=== PATIENT | female | born 1960 | race Caucasian/White ===

== ENCOUNTER 2016-09-18 19:30 | Emergency (ER) | payer OTHER ==
[2016-09-18] MEDS ORDERED: Adenosine 6 MG/2 ML SDV IVPUSH ONE (19:46)
[2016-09-18] MEDS ORDERED: Adenosine 6 MG/2 ML SDV ONE (20:09)
[2016-09-18] MEDS ORDERED: Diltiazem 25 MG/5 ML SDV ONE (20:14)
--- NOTE | 2016-09-18 20:29 | EDM.PDOC ---
[id number]: SVT Time Seen by Provider: 09/18/16 19:46 Source of Information: Reports: Patient, Old records - History of Present Illness INITIAL COMMENTS - FREE TEXT/NARRATIVE: Patient has long history of SVT which occasionally requires ER visit and use of adenosine. Last visit was in the [facility] in Jun this year. Current episode started about 6 pm and her usual abortive measures tried at home failed to relieve the tachycardia. She then presented to ER. Symptom Onset Date: 09/18/16 Symptom Onset Time: 18:00 Timing/Duration: Reports: Hour(s):, Sudden onset Severity: moderate Location, General: Reports: generalized Quality: Reports: Other (sensation of SVT, heart pounding) Improves with: Reports: None Worsens with: Reports: None Associated Symptoms (General): Reports: no other symptoms. Denies: chest pain, cough, diaphoresis, headaches, nausea/vomiting, shortness of breath, syncope - Related Data Allergies/ADRs: Allergies Allergy/AdvReac Type Severity Reaction Status Date / Time aspirin Allergy Hives Verified 09/18/16 21:32 cefprozil [From Cefzil] Allergy Hives Verified 09/18/16 21:32 penicillin Allergy Hives Verified 09/18/16 21:32 Sulfa (Sulfonamide Allergy Hives Verified 09/18/16 21:32 Antibiotics) Home Meds: Home Meds Esomeprazole Magnesium [Nexium] 40 mg PO ASDIRECTED 12/21/14 [History] Metoprolol Tartrate [Metoprolol Tartrate] 100 mg PO BID 12/21/14 [History] Past Medical History Cardiovascular History: Reports: Arrhythmia, Hypertension, Other (see below) Other Cardiovascular History: SVT - Past Surgical History Cardiovascular Surgical History: Reports: None Social & Family History - Family History Cardiac: Reports: Bypass Other Cardiac Family History: father >60 years of age - Tobacco Use Smoking Status *Q: Never Smoker - Alcohol Use Number of Drinks Per Day: 2 ED ROS GENERAL - Review of Systems Review Of Systems: See Below Constitutional: Reports: other (palpitations and racing pulse). Denies: fever, chills, weakness, fatigue, diaphoresis HEENT: Reports: No symptoms Respiratory: Reports: No Symptoms. Denies: Shortness of Breath, Wheezing, Pleuritic Chest Pain, Cough Cardiovascular: Reports: Palpitations, Other (feels like heart is racing) Endocrine: Reports: no symptoms. Denies: polydypsia, polyuria GI/Abdominal: Reports: No symptoms. Denies: Abdominal pain, Constipation, Diarrhea, Difficulty swallowing, Distension : Reports: no symptoms Musculoskeletal: Reports: no symptoms Skin: Reports: no symptoms Neurological: Reports: No Symptoms Psychiatric: Reports: No symptoms Hematologic/Lymphatic: Reports: no symptoms Immunologic: Reports: no symptoms ED EXAM, GENERAL - Physical Exam Exam: See Below Exam Limited By: No limitations General Appearance: alert, WD/WN, no apparent distress Eye Exam: bilateral eye: EOMI, normal inspection, PERRL Ears: normal external exam, normal canal, hearing grossly normal Ear Exam: bilateral ear: auricle normal, canal normal, TM normal Nose: normal inspection Throat/Mouth: Normal inspection, No airway compromise Head: atraumatic, normocephalic Neck: normal inspection, supple, non-tender, full range of motion Respiratory/Chest: no respiratory distress, lungs clear, normal breath sounds. No: respiratory distress, crackles, rales, rhonchi, wheezing, accessory muscle use Cardiovascular: normal peripheral pulses, no edema, no murmur, other (SVT on monitor and initial EKG 150-160 bpm) Peripheral Pulses: 3+: dorsalis pedis (L), dorsalis pedis (R) GI/Abdominal: normal bowel sounds, soft, non tender, no organomegaly. No: no distention, rebound, tender Extremities: normal inspection, normal range of motion Neurological: alert, oriented, normal cognition, no motor/sensory deficits Psychiatric: normal affect, normal mood Skin Exam: Warm, Dry, Intact, Normal color EKG INTERPRETATION EKG Date: 09/18/16 Time: 19:35 Rhythm: other (SVTrate 164) P-wave: absent QRS: normal ST-T: depressed QT: normal EKG Interpretation Comments: SVT with ST segment depression changes likely due to rate Course - Vital Signs Last Recorded V/S: Last Vital Signs Temp Pulse 106 H 09/18/16 20:23 Resp 16 09/18/16 20:23 BP 182/108 H 09/18/16 20:23 Pulse Ox 99 09/18/16 20:23 - Orders/Labs/Meds Labs: Laboratory Tests 04/22/17 04/22/17 Range/Units 20:30 20:30 WBC 7.5 (4.0-10.0) x10^3/uL RBC 4.16 (4.00-5.50) x10^6/uL Hgb 13.2 (12.0-16.0) g/dL Hct 39.1 (33.0-47.0) % MCV 94.0 H (78.0-93.0) fL MCH 31.7 (26.0-32.0) pg MCHC 33.8 (32.0-36.0) g/dL RDW Coeff of Adelaida 12.8 (10.0-15.0) % Plt Count 195 (130-400) x10^3/uL Neut % (Auto) 61.8 (50.0-80.0) % Lymph % (Auto) 28.6 (25.0-50.0) % Ritchie % (Auto) 8.2 (2.0-11.0) % Eos % (Auto) 1.1 (0.0-4.0) % Baso % (Auto) 0.3 (0.2-1.2) % Sodium 141 (136-145) mmol/L Potassium 3.7 (3.5-5.1) mmol/L Chloride 108 H (98-107) mmol/L Carbon Dioxide 25 (21-32) mmol/L BUN 16 (7-18) mg/dL Creatinine 0.9 (0.55-1.02) mg/dL Est Cr Clr Drug Dosing TNP Estimated GFR (MDRD) > 60 Glucose 118 H (74-106) mg/dL Calcium 8.5 (8.5-10.1) mg/dL Corrected Calcium 8.98 (8.5-10.1) mg/dL Total Bilirubin 0.3 (0.2-1.0) mg/dL AST 23 (15-37) U/L ALT 36 (14-59) U/L Alkaline Phosphatase 95 (46-116) U/L Creatine Kinase 52 (26-192) U/L Creatine Kinase Index 1.3 (0.0-4.0) % CK-MB (CK-2) 0.7 (0.0-3.6) ng/mL Troponin I < 0.017 (<=0.056) ng/mL Total Protein 6.7 (6.4-8.2) g/dL Albumin 3.4 (3.4-5.0) g/dL Globulin 3.3 Albumin/Globulin Ratio 1.03 Meds: Medications Discontinued Medications Generic Name Dose Route Start Last Admin Trade Name Mohan PRN Reason Stop Dose Admin Adenosine 6 mg 09/18/16 19:46 09/18/16 20:00 Adenocard IVPUSH 09/18/16 19:47 6 mg NOW ONE Administration Adenosine Confirm 09/18/16 20:09 09/18/16 20:06 Adenocard Administered 09/18/16 20:10 12 mg Dose Administration 12 mg .ROUTE .STK-MED ONE Diltiazem HCl Confirm 09/18/16 20:14 09/18/16 20:48 Diltiazem Administered 09/18/16 20:15 20 mg Dose Administration 25 mg .ROUTE .STK-MED ONE - Re-Assessments/Exams Free Text/Narrative Re-Assessment/Exam: Patient given dose of adenosine 6 mg IV with no conversion to sinus. Second dose given of 12 mg and pulse dropped to 105 -110 for about fifteen minutes. Patient observed on byproducts maker continously and oxygen on before med given. Patient spontaneously went back into SVT rate of 160s again. denied chest pain or shortness of breath at that time. Given 20 mg of IV diltiazem slowly IV and within ten minutes or so was back into sinus rhythm of 90-100. Given one liter of IV normal saline over one hour to make sure not dehydrated. Labs done and Patient rested in room. Up to restroom with assistance three times. Labs reviewed and no acute abnormals noted. Cardiacs within normal limits. Will continue to monitor. second EKG done at 2012 showed sinus tach with nonspecific st seg changes diffusely rate 106 bpm. 09/18/16 21:48 09/18/16 21:56 Free Text/Narrative Re-Assessment/Exam: 09/18/16 22:33 Patient has maintained pulse in the 80s sinus rhythm for the last hour. Has been up ambulating in the garner without recurrence of symptoms. No chest pain. No SOB noted. Remains in NSR at this time. BP 179 systolic (down from 206). Departure - Departure Time of Disposition: 22:35 Disposition: Home, Self-Care 01 Condition: good Clinical Impression: SVT (supraventricular tachycardia) Instructions: Paroxysmal Supraventricular Tachycardia Referrals: PCP,None [Primary Care Provider] - Forms: ED Department Discharge Additional Instructions: Return to ER at once if symptoms redevelop or if you develop new symptoms such as chest pain, shortness of breath, nausea or sweating. Come back to hospital tomorrow for a recheck of BP. - Problem List Review Problem List Initiated/Reviewed/Updated: Yes - Assessment/Plan Plan: Discharge to home. Follow up with PCP this week.
[2016-09-18 21:11] LABS: CHLORIDE,CL 108 mmol/L (98-107); SODIUM,NA 141 mmol/L (136-145)
[2016-09-19 03:05] VITALS: BP 179/96
== END 2016-09-18 22:59 | disposition home or self-care (01) ==
LOC: VM.ED 19:30
DX: I47.1 Supraventricular tachycardia (principal); Z88.0 Allergy status to penicillin; Z88.1 Allergy status to other antibiotic agents; Z88.2 Allergy status to sulfonamides; Z88.6 Allergy status to analgesic agent; Z79.899 Other long term (current) drug therapy
CPT/HCPCS: 36415; 80053; 82550; 82553; 84484; 85025; 96374; 96375; 99285; J0153; 93005; J3490

== ENCOUNTER 2016-12-15 10:50 | Emergency (ER) | payer OTHER ==
[2016-12-15] MEDS ORDERED: Sodium Chloride 0.9% 10 ML Syringe FLUSH PRN (11:02)
[2016-12-15] MEDS ORDERED: Adenosine 6 MG/2 ML SDV IVPUSH ONE (11:03)
[2016-12-15] MEDS ORDERED: Sodium Chloride 0.9% 500 ML IV ONE (11:04)
[2016-12-15 11:56] LABS: CHLORIDE,CL 104 mmol/L (98-107); SODIUM,NA 141 mmol/L (136-145)
[2016-12-15 12:26] VITALS: BP 157/90
--- NOTE | 2016-12-16 07:42 | ER ---
Date of Service: 12/15/2016 SUBJECTIVE: Mary Kay presents to the emergency room with complaints of rapid heart rate. She has a history of paroxysmal supraventricular tachycardia with her last episode being in August. The patient states that she is not experiencing any chest pain or shortness of breath. She states that she began experiencing these symptoms at approximately 6:00 a.m. this morning and states that they are similar to what she has experienced in the past. PAST MEDICAL HISTORY: 1. SVT. 2. Hypertension. 3. Depression. 4. Anxiety. 5. GERD. MEDICATIONS: 1. Metoprolol tartrate 100 mg p.o. b.i.d. 2. Nexium 40 mg p.o. daily. 3. Alprazolam 0.25 mg q.4 hours. ALLERGIES: Aspirin, Cefzil, penicillin, and sulfa. REVIEW OF SYSTEMS: General: No fever or chills. HEENT: No sore throat, rhinorrhea, congestion. Respiratory: No shortness of breath. Cardiac: Denies any substernal chest pain. Again, she does have a sensation of tachycardia. GI: No nausea, vomiting, or diarrhea. No melena, hematochezia, or hematemesis. : Denies any dysuria. Musculoskeletal: No myalgias or arthralgias. DIAGNOSTIC DATA: A 12-lead EKG was obtained showing SVT at 150-160. LABORATORY DATA: WBCs 7.4, hemoglobin is 14.4, platelets are 205. Coags; PT is 10.2, INR is 0.9. Chemistry; sodium is 141, potassium is 4.0, chloride is 104, bicarb is 24, BUN is 14, creatinine is 1.0, creatinine clearance is 51.96. GFR is 57, glucose is 126, calcium is 9.4, corrected calcium is 9.48, total bilirubin is 0.4. AST is 21, ALT is 30, alkaline phosphatase is 105, CK is 44, troponin is 0.02, total protein is 7.9. EMERGENCY ROOM COURSE: IV access was established. She was given 6 mg of adenosine IV and her heart rate decreased into the high 90s and eventually the rate decreased into the 80s range. She had no further complaints of rapid heart rate, chest pain, or shortness of breath, and wished to be discharged. ASSESSMENT: Paroxysmal supraventricular tachycardia. PLAN: The patient will be discharged home. 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 They have discussed doing a radiofrequency ablation in the past, but she is resistant to doing this due to the complications that can follow her following such procedure. Return to the ER if she develops any recurrence of her symptoms. MWK: 12/15/2016 12:29:20 MODL: 12/15/2016 21:12:00 /[id number]
--- NOTE | 2016-12-22 13:55 | ER ---
Date of Service: 12/15/2016 ADDENDUM: PHYSICAL EXAMINATION: General: This is a 56-year-old female patient, who is in no acute distress. Vital Signs: Blood pressure is 146/102, heart rate 157 to 170, respiratory rate 16, O2 saturations 100%, temperature is 36.6. Skin: Warm, pink, and dry. Lungs: Clear to auscultation. Heart: Regular and tachycardic. Abdomen: Soft, nontender. There is no hepatosplenomegaly noted. There are no masses noted. Extremities: Without edema. Neurologic: The patient is alert, oriented, answers all questions appropriately. The patient's speech is fluent. Her gait is within normal limits. MWK: 12/22/2016 07:53:11 MODL: 12/22/2016 12:00:20 /[id number]
== END 2016-12-15 12:10 | disposition home or self-care (01) ==
LOC: VM.ED 10:50
DX: I47.1 Supraventricular tachycardia (principal); I10 Essential (primary) hypertension; F32.9 Major depressive disorder, single episode, unspecified; K21.9 Gastro-esophageal reflux disease without esophagitis; F41.9 Anxiety disorder, unspecified; Z79.899 Other long term (current) drug therapy; Z88.1 Allergy status to other antibiotic agents; Z88.2 Allergy status to sulfonamides; Z88.8 Allergy status to other drugs, medicaments and biological substances
CPT/HCPCS: 36415; 80053; 82550; 84484; 85025; 85610; 93005; 96361; 96374; 99285; J0153; J7040

== ENCOUNTER 2017-02-12 15:55 | Emergency (ER) | payer OTHER ==
--- NOTE | 2017-02-12 16:36 | EDM.PDOC ---
ED HPI GENERAL MEDICAL PROBLEM - General Chief Complaint: Cardiovascular Problem Stated Complaint: SVT Time Seen by Provider: 02/12/17 16:09 Source of Information: Reports: Patient, RN, RN Notes Reviewed History Limitations: Reports: No Limitations - History of Present Illness INITIAL COMMENTS - FREE TEXT/NARRATIVE: Patient presents the emergency room at [facility] with concerns of uncontrolled SVT. The patient states her symptoms began about 2 hours ago. The patient states that she did take a Xanax in addition to her metoprolol. She states that her symptoms of SVT did not resolve so she brought herself to the emergency room. The patient denies any chest pain. The patient denies any shortness of breath. No focal neurological deficits. No nausea vomiting or diarrhea. No dizziness. No headache. The patient states that she takes metoprolol on a daily basis to help control her SVT. The patient states it has been a very long time since her last episode. The patient does have regular clinic appointments and is being watched very closely. Onset: Today, Sudden Onset Date: 02/12/17 - Related Data Allergies Allergy/AdvReac Type Severity Reaction Status Date / Time aspirin Allergy Hives Verified 02/12/17 16:13 cefprozil [From Cefzil] Allergy Hives Verified 02/12/17 16:13 penicillin Allergy Hives Verified 02/12/17 16:13 Sulfa (Sulfonamide Allergy Hives Verified 02/12/17 16:13 Antibiotics) Home Meds: Home Meds Esomeprazole Magnesium [Nexium] 40 mg PO ASDIRECTED 12/21/14 [History] Metoprolol Tartrate [Metoprolol Tartrate] 100 mg PO BID 12/21/14 [History] ALPRAZolam [Alprazolam] 0.25 mg PO Q4H PRN 12/15/16 [History] Past Medical History Cardiovascular History: Reports: Arrhythmia, Hypertension, Other (See Below) Other Cardiovascular History: SVT - Past Surgical History Cardiovascular Surgical History: Reports: None Social & Family History - Family History Cardiac: Reports: Bypass Other Cardiac Family History: father >60 years of age - Tobacco Use Smoking Status *Q: Never Smoker - Alcohol Use Days Per Week of Alcohol Use: 4 Number of Drinks Per Day: 3 Total Drinks Per Week: 12 - Recreational Drug Use Recreational Drug Use: No ED ROS GENERAL - Review of Systems Review Of Systems: See Below Constitutional: Denies: Fever, Chills, Weakness Respiratory: Reports: Shortness of Breath, Cough Cardiovascular: Reports: Palpitations, Other (Tachycardia). Denies: Chest Pain GI/Abdominal: Denies: Abdominal Pain, Nausea, Vomiting Skin: Reports: No Symptoms Neurological: Reports: No Symptoms. Denies: Dizziness, Headache ED EXAM, GENERAL - Physical Exam Exam: See Below Exam Limited By: No Limitations General Appearance: Alert, No Apparent Distress Respiratory/Chest: No Respiratory Distress, Lungs Clear, Normal Breath Sounds Cardiovascular: Normal Peripheral Pulses, Regular Rate, Rhythm, No JVD, No Murmur Peripheral Pulses: 2+: Radial (L), Radial (R) GI/Abdominal: Normal Bowel Sounds, Soft, Non-Tender Neurological: Alert, Oriented Skin Exam: Warm, Dry, Intact, Normal Color, No Rash Departure - Departure Time of Disposition: 16:34 Disposition: Home, Self-Care 01 Condition: Good Clinical Impression: SVT (supraventricular tachycardia) Instructions: Paroxysmal Supraventricular Tachycardia Referrals: Jyoti Boston, [Primary Care Provider] - Additional Instructions: 1. Stay well hydrated and rest 2. Continue with current medications 3. Return to ER as symptoms warrant - Problem List Review Problem List Initiated/Reviewed/Updated: Yes - Assessment/Plan Assessment:: Uncontrolled SVT Plan: As the patient was being assessed in the emergency department, her heart rate did convert to a normal sinus rhythm with a rate in the 90s. The patient did self convert. No intervention required. The patient declined the EKG. The patient will rest in the ER for a while and if she feels okay she'll be discharged home.
[2017-02-12 17:21] VITALS: BP 159/105
== END 2017-02-12 16:45 | disposition home or self-care (01) ==
LOC: VM.ED 15:55
DX: I47.1 Supraventricular tachycardia (principal); I10 Essential (primary) hypertension; Z88.6 Allergy status to analgesic agent; Z88.2 Allergy status to sulfonamides; Z88.0 Allergy status to penicillin; Z88.8 Allergy status to other drugs, medicaments and biological substances
CPT/HCPCS: 99284

== ENCOUNTER 2017-12-04 19:40 | Emergency (ER) | payer OTHER ==
--- NOTE | 2017-12-04 19:56 | EDM.PDOC ---
ED HPI GENERAL MEDICAL PROBLEM - General Chief Complaint: Cardiovascular Problem Stated Complaint: SVT Time Seen by Provider: 12/04/17 19:56 Source of Information: Reports: Patient - History of Present Illness INITIAL COMMENTS - FREE TEXT/NARRATIVE: The patient has had SVT multiple times before. She said that she felt earlier today and she try to take an extra Lopressor but to no avail. She does have a racing heart rate. She did not have any triggers. She does not know of any triggers. 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 She does not feel lightheaded or dizzy per se. We did do an EKG to confirm her SVT. We then gave her one IV worth of adenosine. We did observe her for a short time afterwards and then she was comfortable with going home. In the past she has been able to convert with one IV otherwise she did have to have a second and a Cardizem drip but that is quite rare. She has not had a SVT episode since April. No fever no chills. Onset: Today Severity: Moderate Improves with: Reports: None Worsens with: Reports: None - Related Data Allergies Allergy/AdvReac Type Severity Reaction Status Date / Time aspirin Allergy Hives Verified 12/07/17 10:47 cefprozil [From Cefzil] Allergy Hives Verified 12/07/17 10:47 penicillin Allergy Hives Verified 12/07/17 10:47 Sulfa (Sulfonamide Allergy Hives Verified 12/07/17 10:47 Antibiotics) Home Meds: Home Meds Metoprolol Tartrate 100 mg PO BID 12/21/14 [History] ALPRAZolam [Alprazolam] 0.25 mg PO Q4H PRN 12/15/16 [History] Past Medical History Cardiovascular History: Reports: Arrhythmia, Hypertension, Other (See Below) Other Cardiovascular History: SVT 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 ED EXAM, GENERAL - Physical Exam Exam: See Below Exam Limited By: No Limitations General Appearance: Alert, Mild Distress. No: Anxious Respiratory/Chest: No Respiratory Distress, Lungs Clear Cardiovascular: Other (Tachycardia and proven to be SVT on EKG.) ED CARDIOLOGY PROCEDURES - Cardioversion Indication: SVT Preparation: IV Access (Adenosine) EKG INTERPRETATION Rhythm: Other (SVT) Course - Vital Signs Last Recorded V/S: Last Vital Signs Temp 36.9 C 12/04/17 19:54 Pulse 91 12/04/17 20:45 Resp 20 12/04/17 20:45 BP 155/88 H 12/04/17 20:45 Pulse Ox 99 12/04/17 20:45 - Orders/Labs/Meds Meds: Medications Discontinued Medications Generic Name Dose Route Start Last Admin Trade Name Freq PRN Reason Stop Dose Admin Adenosine 6 mg 12/04/17 20:02 12/04/17 20:06 Adenocard IVPUSH 12/04/17 20:03 6 mg NOW ONE Administration Sodium Chloride 1,000 mls @ 999 mls/hr 12/04/17 20:10 12/04/17 20:11 Normal Saline IV 12/04/17 21:10 999 mls/hr ONETIME ONE Administration Departure - Departure Time of Disposition: 20:37 Disposition: Home, Self-Care 01 Condition: Good Clinical Impression: SVT (supraventricular tachycardia) Referrals: Jyoti Boston DO [Primary Care Provider] - Forms: ED Department Discharge Additional Instructions: Return here if needed. See Dr. Boston if needed.
[2017-12-04] MEDS ORDERED: Adenosine 6 MG/2 ML SDV IVPUSH ONE (20:02)
[2017-12-04] MEDS ORDERED: Sodium Chloride 0.9% 1,000 ML IV ONE (20:10)
[2017-12-04 20:45] VITALS: BP 155/88
== END 2017-12-04 20:52 | disposition home or self-care (01) ==
LOC: VM.ED 19:40
DX: I47.1 Supraventricular tachycardia (principal); I10 Essential (primary) hypertension; Z88.1 Allergy status to other antibiotic agents; Z88.2 Allergy status to sulfonamides; Z88.8 Allergy status to other drugs, medicaments and biological substances
CPT/HCPCS: 93005; 96361; 96374; 99285; J0153; J7030

== ENCOUNTER 2017-12-07 10:03 | Emergency (ER) | payer OTHER ==
[2017-12-07] MEDS ORDERED: Sodium Chloride 0.9% 10 ML Syringe FLUSH PRN (10:14)
[2017-12-07] MEDS: Sodium Chloride 0.9% 1,000 ML IV ONE (10:30)
[2017-12-07] MEDS: Adenosine 6 MG/2 ML SDV IVPUSH ONE (10:35)
[2017-12-07 11:00] LABS: CHLORIDE,CL 108 mmol/L (98-107); SODIUM,NA 141 mmol/L (136-145)
[2017-12-07 12:33] VITALS: BP 130/92
--- NOTE | 2017-12-07 16:36 | EDM.PDOC ---
ED HPI GENERAL MEDICAL PROBLEM - General Chief Complaint: Cardiovascular Problem Stated Complaint: ER Time Seen by Provider: 12/07/17 10:10 Source of Information: Reports: Patient History Limitations: Reports: No Limitations - History of Present Illness INITIAL COMMENTS - FREE TEXT/NARRATIVE: Pt. states that she noticed her heart was racing at approx. 0500 this AM. She has a longstanding history of SVT and frequently comes to ER for this. She was seen for the same 2 days ago and was seen by Bela Herrera, and received IV adenosine. She converted on the first dose. In evaluating her chart, she has not been seen by EP or cardiology since 2014. She states that she is not experiencing any chest pain or shortness of breath. Onset: Today Onset Time: 05:00 Location: Reports: Generalized - Related Data Allergies Allergy/AdvReac Type Severity Reaction Status Date / Time aspirin Allergy Hives Verified 12/07/17 10:47 cefprozil [From Cefzil] Allergy Hives Verified 12/07/17 10:47 penicillin Allergy Hives Verified 12/07/17 10:47 Sulfa (Sulfonamide Allergy Hives Verified 12/07/17 10:47 Antibiotics) Home Meds: Home Meds Metoprolol Tartrate 100 mg PO BID 12/21/14 [History] ALPRAZolam [Alprazolam] 0.25 mg PO Q4H PRN 12/15/16 [History] Past Medical History Cardiovascular History: Reports: Arrhythmia, Hypertension, Other (See Below) Other Cardiovascular History: 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 Denies: Chest Pain, Dyspnea on Exertion , Edema, Lightheadedness Endocrine: Reports: No Symptoms GI/Abdominal: Reports: No Symptoms : Reports: No Symptoms Musculoskeletal: Reports: No Symptoms Skin: Reports: No Symptoms Neurological: Reports: No Symptoms Psychiatric: Reports: No Symptoms Hematologic/Lymphatic: Reports: No Symptoms Immunologic: Reports: No Symptoms ED EXAM, GENERAL - Physical Exam Exam: See Below Exam Limited By: No Limitations General Appearance: Alert, WD/WN, No Apparent Distress Nose: Normal Inspection, Normal Mucosa, No Blood Throat/Mouth: Normal Inspection, Normal Lips, Normal Teeth, Normal Gums, Normal Oropharynx, Normal Voice, No Airway Compromise Head: Atraumatic, Normocephalic Neck: Normal Inspection, Supple, Non-Tender, Full Range of Motion Respiratory/Chest: No Respiratory Distress, Lungs Clear, Normal Breath Sounds, No Accessory Muscle Use, Chest Non-Tender Cardiovascular: Tachycardia Peripheral Pulses: 4+: Radial (L), Radial (R) GI/Abdominal: Normal Bowel Sounds, Soft, Non-Tender, No Organomegaly, No Distention, No Abnormal Bruit, No Mass (Female) Exam: Deferred Rectal (Female) Exam: Deferred Back Exam: Normal Inspection, Full Range of Motion, NT Extremities: Normal Inspection, Normal Range of Motion, Non-Tender, Normal Capillary Refill, No Pedal Edema Neurological: Alert, Oriented, CN II-XII Intact, Normal Cognition, Normal Gait, Normal Reflexes, No Motor/Sensory Deficits Skin Exam: Warm, Dry, Intact, Normal Color, No Rash Course - Vital Signs Last Recorded V/S: Last Vital Signs Temp 36.7 C 12/07/17 10:10 Pulse 85 12/07/17 11:00 Resp 14 12/07/17 11:00 BP 130/92 H 12/07/17 11:00 Pulse Ox 98 12/07/17 11:00 - Orders/Labs/Meds Orders: Active Orders 24 hr Category Date Time Status EKG Documentation Completion [RC] STAT Care 12/07/17 10:14 Active Peripheral IV Insertion Adult [OM.PC] Routine Oth 12/07/17 10:14 Ordered Labs: Laboratory Tests 12/07/17 12/07/17 12/07/17 Range/Units 10:30 10:30 10:30 WBC 7.5 (4.0-10.0) x10^3/uL RBC 4.39 (4.00-5.50) x10^6/uL Hgb 14.0 (12.0-16.0) g/dL Hct 42.0 (33.0-47.0) % MCV 95.7 H (78.0-93.0) fL MCH 31.9 (26.0-32.0) pg MCHC 33.3 (32.0-36.0) g/dL RDW Coeff of Adelaida 13.3 (10.0-15.0) % Plt Count 236 (130-400) x10^3/uL Neut % (Auto) 67.4 (50.0-80.0) % Lymph % (Auto) 25.3 (25.0-50.0) % [place] % (Auto) 6.4 (2.0-11.0) % Eos % (Auto) 0.8 (0.0-4.0) % Baso % (Auto) 0.1 L (0.2-1.2) % PT 9.7 (9.6-11.4) SEC INR 0.9 L (2.0-3.5) Sodium 141 (136-145) mmol/L Potassium 4.0 (3.5-5.1) mmol/L Chloride 108 H (98-107) mmol/L Carbon Dioxide 20 L (21-32) mmol/L Anion Gap 17.0 (10-20) mmol/L BUN 16 (7-18) mg/dL Creatinine 1.0 (0.55-1.02) mg/dL Est Cr Clr Drug Dosing TNP Estimated GFR (MDRD) 57 Glucose 169 H (74-106) mg/dL Calcium 9.3 (8.5-10.1) mg/dL Corrected Calcium 9.54 (8.5-10.1) mg/dL Phosphorus 3.2 (2.6-4.7) mg/dL Magnesium 1.8 (1.8-2.4) mg/dL Total Bilirubin 0.5 (0.2-1.0) mg/dL AST 18 (15-37) U/L ALT 28 (14-59) U/L Alkaline Phosphatase 91 (46-116) U/L Troponin I < 0.017 (<=0.056) ng/mL C-Reactive Protein < 0.3 (<=0.9) mg/dL Total Protein 7.1 (6.4-8.2) g/dL Albumin 3.7 (3.4-5.0) g/dL Globulin 3.4 Albumin/Globulin Ratio 1.09 Meds: Medications Discontinued Medications Generic Name Dose Route Start Last Admin Trade Name Freq PRN Reason Stop Dose Admin Adenosine 6 mg 12/07/17 10:13 12/07/17 10:35 Adenocard IVPUSH 12/07/17 10:14 6 mg NOW ONE Administration Sodium Chloride 1,000 mls @ 1,000 mls/hr 12/07/17 10:22 12/07/17 10:30 Normal Saline IV 12/07/17 11:21 1,000 mls/hr .BOLUS ONE Administration Sodium Chloride 10 ml 12/07/17 10:14 Saline Flush FLUSH ASDIRECTED PRN Keep Vein Open Departure - Departure Time of Disposition: 11:30 Disposition: Home, Self-Care 01 Clinical Impression: Paroxysmal supraventricular tachycardia Instructions: Supraventricular Tachycardia, Adult Referrals: Jyoti Boston, [Primary Care Provider] - Forms: ED Department Discharge Additional Instructions: The clinic will call you to set up an appointment with the dispatch clerk. Return to ER if you have recurrence of fast heart rate. - My Orders Last 24 Hours: My Active Orders 12/07/17 10:14 EKG Documentation Completion [RC] STAT Peripheral IV Insertion Adult [OM.PC] Routine - Assessment/Plan Last 24 Hours: My Active Orders 12/07/17 10:14 EKG Documentation Completion [RC] STAT Peripheral IV Insertion Adult [OM.PC] Routine
== END 2017-12-07 12:00 | disposition home or self-care (01) ==
LOC: VM.ED 10:03
DX: I47.1 Supraventricular tachycardia (principal); I10 Essential (primary) hypertension; Z88.6 Allergy status to analgesic agent; Z88.1 Allergy status to other antibiotic agents; Z88.0 Allergy status to penicillin; Z88.2 Allergy status to sulfonamides
CPT/HCPCS: 36415; 80053; 83735; 84100; 84484; 85025; 85610; 86140; 93005; 96361; 96374; 99285; J0153; J7030

== ENCOUNTER 2018-09-26 08:23 | Emergency (ER) | payer OTHER ==
[2018-09-26 08:32] VITALS: BP 173/118
[2018-09-26] MEDS ORDERED: Sodium Chloride 0.9% 10 ML Syringe FLUSH PRN (08:34)
[2018-09-26] MEDS ORDERED: Sodium Chloride 0.9% 1,000 ML IV SCH (08:45)
[2018-09-26] MEDS ORDERED: Diltiazem 50 MG/10 ML SDV IVPUSH ONE (08:45)
[2018-09-26 09:31] LABS: ANION GAP 19.9 mmol/L (10-20); CHLORIDE,CL 108 mmol/L (98-107); SODIUM,NA 145 mmol/L (136-145)
--- NOTE | 2018-09-26 09:42 | EDM.PDOC ---
ED HPI GENERAL MEDICAL PROBLEM - General Chief Complaint: Cardiovascular Problem Stated Complaint: FAST HEART RATE Time Seen by Provider: 09/26/18 08:34 Source of Information: Reports: Patient History Limitations: Reports: No Limitations - History of Present Illness INITIAL COMMENTS - FREE TEXT/NARRATIVE: Patient comes in with complaints of palpitations that started around 5 am today. Patient reports history of SVT and states that this is what this feels like. NO reports of chest pain or pressure. States she has this happen frequently and does come in to have medications given which usually corrects that arrhythmia. No headache, blurry or double vision. Denies SOB, no abdominal pain, nausea, vomiting, or diarrhea. Denies any further symptoms. States she did try vaso-vagal maneuvers prior to coming in which were ineffective. Onset: Today, Sudden Duration: Intermittent Location: Reports: Chest Severity: Moderate Associated Symptoms: Reports: No Other Symptoms - Related Data Allergies Allergy/AdvReac Type Severity Reaction Status Date / Time aspirin Allergy Hives Verified 09/26/18 08:34 cefprozil [From Cefzil] Allergy Hives Verified 09/26/18 08:34 penicillin Allergy Hives Verified 09/26/18 08:34 Sulfa (Sulfonamide Allergy Hives Verified 09/26/18 08:34 Antibiotics) Home Meds: Home Meds Metoprolol Tartrate 100 mg PO BID 12/21/14 [History] ALPRAZolam [Alprazolam] 0.25 mg PO Q4H PRN 12/15/16 [History] Past Medical History Cardiovascular History: Reports: Arrhythmia, Hypertension, Other (See Below) 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: - Past Surgical History Cardiovascular Surgical History: Reports: None Social & Family History - Family History Cardiac: Reports: Bypass Other Cardiac Family History: father >60 years of age - Tobacco Use Smoking Status *Q: Never Smoker - Alcohol Use Days Per Week of Alcohol Use: 7 Number of Drinks Per Day: 7 Total Drinks Per Week: 49 - Recreational Drug Use Recreational Drug Use: No ED ROS GENERAL - Review of Systems Review Of Systems: See Below Constitutional: Reports: No Symptoms HEENT: Reports: No Symptoms Respiratory: Reports: No Symptoms Cardiovascular: Reports: Palpitations Endocrine: Reports: No Symptoms GI/Abdominal: Reports: No Symptoms : Reports: No Symptoms Musculoskeletal: Reports: No Symptoms Skin: Reports: No Symptoms Neurological: Reports: No Symptoms Psychiatric: Reports: No Symptoms Hematologic/Lymphatic: Reports: No Symptoms Immunologic: Reports: No Symptoms ED EXAM, GENERAL - Physical Exam Exam: See Below Exam Limited By: No Limitations General Appearance: Alert, WD/WN, No Apparent Distress Eye Exam: Bilateral Eye: EOMI, PERRL Ears: Normal TMs Ear Exam: Bilateral Ear: Auricle Normal, Canal Normal Nose: Normal Inspection, Normal Mucosa, No Blood Throat/Mouth: Normal Inspection, Normal Lips, Normal Teeth, Normal Gums, Normal Oropharynx, Normal Voice, No Airway Compromise Head: Atraumatic, Normocephalic Neck: Normal Inspection, Supple, Non-Tender, Full Range of Motion Respiratory/Chest: No Respiratory Distress, Lungs Clear, Normal Breath Sounds, No Accessory Muscle Use, Chest Non-Tender Cardiovascular: Normal Peripheral Pulses, No Murmur, Tachycardia Peripheral Pulses: 2+: Posterior Tibial (L), Posterior Tibial (R), Dorsalis Pedis (L), Dorsalis Pedis (R) GI/Abdominal: Normal Bowel Sounds, Soft, Non-Tender, No Organomegaly, No Distention, No Abnormal Bruit, No Mass Extremities: Normal Inspection, Normal Range of Motion, Non-Tender, Normal Capillary Refill, No Pedal Edema Neurological: Alert, Oriented, CN II-XII Intact, Normal Cognition, Normal Gait, Normal Reflexes, No Motor/Sensory Deficits Psychiatric: Normal Affect, Normal Mood Skin Exam: Warm, Dry, Intact, Normal Color, No Rash Lymphatic: No Adenopathy EKG INTERPRETATION EKG Date: 09/26/18 Time: 08:35 Rhythm: A-Flutter Rate (Beats/Min): 162 [place]: Normal P-Wave: Absent QRS: Normal ST-T: Normal QT: Normal Comparison: Change From Previous EKG EKG Interpretation Comments: Atruial flutter with RVR nonspecific st/t wave abnormality Course - Vital Signs Last Recorded V/S: Last Vital Signs Temp 36.4 C 09/26/18 08:25 Pulse 164 H 09/26/18 08:25 Resp 16 09/26/18 08:25 BP 173/118 H 09/26/18 08:25 Pulse Ox 99 09/26/18 08:25 - Orders/Labs/Meds Orders: Active Orders 24 hr Category Date Time Status EKG Documentation Completion [RC] STAT Care 09/26/18 08:34 Ordered COMPREHENSIVE METABOLIC PN,CMP [CHEM] Stat Lab 09/26/18 08:44 Ordered INR,PT,PROTHROMBIN TIME [COAG] Stat Lab 09/26/18 08:44 Ordered MAGNESIUM [CHEM] Stat Lab 09/26/18 08:44 Ordered TROPONIN I [CHEM] Stat Lab 09/26/18 08:44 Ordered TSH ULTRASENSITIVE [CHEM] Stat Lab 09/26/18 08:44 Ordered Sodium Chloride 0.9% [Normal Saline] 1,000 ml Med 09/26/18 08:45 Ordered IV ASDIRECTED Sodium Chloride 0.9% [Saline Flush] Med 09/26/18 08:34 Ordered 10 ml FLUSH ASDIRECTED PRN Saline Lock Insert [OM.PC] Routine Oth 09/26/18 08:34 Ordered Medication Orders Sodium Chloride (Normal Saline) 1,000 mls @ 999 mls/hr IV ASDIRECTED BOBO Last Admin: 09/26/18 08:54 Dose: 999 mls/hr Sodium Chloride (Saline Flush) 10 ml FLUSH ASDIRECTED PRN PRN Reason: Keep Vein Open Labs: Laboratory Tests 09/26/18 Range/Units 08:53 WBC 7.5 (4.0-10.0) x10^3/uL RBC 4.42 (4.00-5.50) x10^6/uL Hgb 14.0 (12.0-16.0) g/dL Hct 41.7 (33.0-47.0) % MCV 94.3 H (78.0-93.0) fL MCH 31.7 (26.0-32.0) pg MCHC 33.6 (32.0-36.0) g/dL RDW Coeff of Adelaida 13.1 (10.0-15.0) % Plt Count 220 (130-400) x10^3/uL Neut % (Auto) 66.3 (50.0-80.0) % Lymph % (Auto) 25.6 (25.0-50.0) % [place] % (Auto) 6.9 (2.0-11.0) % Eos % (Auto) 0.9 (0.0-4.0) % Baso % (Auto) 0.3 (0.2-1.2) % Meds: Medications Generic Name Dose Route Start Last Admin Trade Name Freq PRN Reason Stop Dose Admin Sodium Chloride 1,000 mls @ 999 mls/hr 09/26/18 08:45 09/26/18 08:54 Normal Saline IV 999 mls/hr ASDIRECTED BOBO Administration Sodium Chloride 10 ml 09/26/18 08:34 Saline Flush FLUSH ASDIRECTED PRN Keep Vein Open Discontinued Medications Generic Name Dose Route Start Last Admin Trade Name Mohan PRN Reason Stop Dose Admin Diltiazem HCl 25 mg 09/26/18 08:45 09/26/18 08:54 Cardizem IVPUSH 09/26/18 08:46 25 mg ONETIME ONE Administration - Re-Assessments/Exams Free Text/Narrative Re-Assessment/Exam: 09/26/18 10:20 Repeat EKG shows patient to be in NSR rate 78 after 25 mg IV cardizem administration. Conversion within 1-2 minutes of administration Departure - Departure Time of Disposition: 09:30 Disposition: Home, Self-Care 01 Condition: Good Clinical Impression: Atrial flutter by electrocardiogram Instructions: Atrial Flutter Additional Instructions: Plan 1. Continue to follow up with your primary for additional interventions as needed for your a-fib/flutter/SVT 2. Please stay well hydrated 3. Make sure to come in if you have any additional questions or concerns, or you have repeated incidence of palpitations 4. Visit with your recovery engineer as needed regarding any medication changes 5. Please call the ER with any questions or concerns - My Orders Last 24 Hours: My Active Orders 09/26/18 08:34 EKG Documentation Completion [RC] STAT Sodium Chloride 0.9% [Saline Flush] 10 ml FLUSH ASDIRECTED PRN Saline Lock Insert [OM.PC] Routine 09/26/18 08:44 COMPREHENSIVE METABOLIC PN,CMP [CHEM] Stat INR,PT,PROTHROMBIN TIME [COAG] Stat MAGNESIUM [CHEM] Stat TROPONIN I [CHEM] Stat TSH ULTRASENSITIVE [CHEM] Stat 09/26/18 08:45 Sodium Chloride 0.9% [Normal Saline] 1,000 ml IV ASDIRECTED - Assessment/Plan Last 24 Hours: My Active Orders 09/26/18 08:34 EKG Documentation Completion [RC] STAT Sodium Chloride 0.9% [Saline Flush] 10 ml FLUSH ASDIRECTED PRN Saline Lock Insert [OM.PC] Routine 09/26/18 08:44 COMPREHENSIVE METABOLIC PN,CMP [CHEM] Stat INR,PT,PROTHROMBIN TIME [COAG] Stat MAGNESIUM [CHEM] Stat TROPONIN I [CHEM] Stat TSH ULTRASENSITIVE [CHEM] Stat 09/26/18 08:45 Sodium Chloride 0.9% [Normal Saline] 1,000 ml IV ASDIRECTED Assessment:: atrial flutter Plan: Patient discharged home with instructions to return if heart rate converts back into a/flutter Patient encouraged to reach out to her recovery engineer regarding possible medication changes Patient remained stable in our care in the ER this morning.
== END 2018-09-26 09:56 | disposition home or self-care (01) ==
LOC: VM.ED 08:23
DX: I48.92 Unspecified atrial flutter (principal); I10 Essential (primary) hypertension; Z88.8 Allergy status to other drugs, medicaments and biological substances; Z88.0 Allergy status to penicillin; Z88.2 Allergy status to sulfonamides; Z79.899 Other long term (current) drug therapy
CPT/HCPCS: 36415; 80053; 83735; 84443; 84484; 85025; 85610; 93005; 96361; 96374; 99285; J3490; J7030

== ENCOUNTER 2019-02-07 12:28 | Emergency (ER) | payer OTHER ==
[2019-02-07] MEDS: Diltiazem 50 MG/10 ML SDV IVPUSH ONE ×2 (13:02→13:26)
--- NOTE | 2019-02-07 13:06 | EDM.PDOC ---
ED HPI GENERAL MEDICAL PROBLEM - General Chief Complaint: Cardiovascular Problem Stated Complaint: FAST HEARTRATE Time Seen by Provider: 02/07/19 12:45 Source of Information: Reports: Patient History Limitations: Reports: No Limitations - History of Present Illness INITIAL COMMENTS - FREE TEXT/NARRATIVE: Patient states this morning upon getting up for work about 9:00 she felt her heart rate gets fast suddenly. States this happened multiple times in the past last one maybe about 6 months ago. She is in a primary care provider about this for his placed her on Cardizem 30 mg by mouth she is to take it at the start of the onset. Patient states that the Cardizem has not done anything this morning and presented herself to the ER. 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 They have discussed cardiac ablation but at the time patient wanted to continue without it. Duration: Hour(s): Quality: Reports: Other (No pain). Denies: Ache Improves with: Reports: Other (Usually resolves with Cardizem IV) - Related Data Allergies Allergy/AdvReac Type Severity Reaction Status Date / Time aspirin Allergy Hives Verified 02/07/19 12:54 cefprozil [From Cefzil] Allergy Hives Verified 02/07/19 12:54 penicillin Allergy Hives Verified 02/07/19 12:54 Sulfa (Sulfonamide Allergy Hives Verified 02/07/19 12:54 Antibiotics) Home Meds: Home Meds Metoprolol Tartrate 100 mg PO BID 12/21/14 [History] ALPRAZolam [Alprazolam] 0.25 mg PO Q4H PRN 12/15/16 [History] Past Medical History Cardiovascular History: Reports: Arrhythmia, Hypertension, Other (See Below) 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 Denies: Chest Pain, Blood Pressure Problem, Dyspnea on Exertion, Edema, Lightheadedness, Orthopnea, Palpitations, Syncope Endocrine: Reports: No Symptoms GI/Abdominal: Reports: No Symptoms : Reports: No Symptoms Musculoskeletal: Reports: No Symptoms Skin: Reports: No Symptoms Neurological: Reports: No Symptoms Psychiatric: Reports: No Symptoms Hematologic/Lymphatic: Reports: No Symptoms Immunologic: Reports: No Symptoms ED EXAM, GENERAL - Physical Exam Exam: See Below Exam Limited By: No Limitations General Appearance: Alert, WD/WN, No Apparent Distress Eye Exam: Bilateral Eye: EOMI, PERRL Nose: Normal Inspection Throat/Mouth: Normal Inspection, Normal Lips, Normal Teeth, Normal Gums, Normal Oropharynx, Normal Voice, No Airway Compromise Neck: Normal Inspection, Supple, Non-Tender, Full Range of Motion Respiratory/Chest: No Respiratory Distress, Lungs Clear, Normal Breath Sounds, No Accessory Muscle Use, Chest Non-Tender Cardiovascular: Normal Peripheral Pulses, No Edema, No Gallop, No JVD, No Murmur , No Rub, Tachycardia, Other (Normal sinus rhythm tachycardia noted normal carotids bilateral) GI/Abdominal: Normal Bowel Sounds, Soft, Non-Tender, No Organomegaly, No Distention Extremities: Normal Inspection, Normal Range of Motion Neurological: Alert, Oriented, CN II-XII Intact, Normal Cognition, No Motor/ Sensory Deficits Psychiatric: Normal Affect, Normal Mood Skin Exam: Warm, Dry, Intact, Normal Color, No Rash Course - Vital Signs Text/Narrative:: EKG showed normal sinus rhythm tachycardia 158 no acute findings hypertension was noted on vital signs Patient was given 10 mg Cardizem to start IV secondary to already taken 30 mg by mouth about 2 hours ago if no changes will give another 10 mg bolus Patient rechecked after second dose of Cardizem IV heart rate 83 blood pressure is decreased to 155/82 patient states feels much better states she was to go back to work Patient is to continue to take medicines as directed follow with primary care father next 24-48 hours - Orders/Labs/Meds Orders: Active Orders 24 hr Category Date Time Status EKG 12 Lead [EKG Documentation Completion] [RC] STAT Care 02/07/19 12:58 Ordered Labs: Laboratory Tests 02/07/19 02/07/19 Range/Units 13:11 13:11 WBC 9.2 (4.0-10.0) x10^3/uL RBC 4.61 (4.00-5.50) x10^6/uL Hgb 14.8 (12.0-16.0) g/dL Hct 43.6 (33.0-47.0) % MCV 94.6 H (78.0-93.0) fL MCH 32.1 H (26.0-32.0) pg MCHC 33.9 (32.0-36.0) g/dL RDW Coeff of Adelaida 12.9 (10.0-15.0) % Plt Count 225 (130-400) x10^3/uL Neut % (Auto) 66.3 (50.0-80.0) % Lymph % (Auto) 25.3 (25.0-50.0) % [place] % (Auto) 7.7 (2.0-11.0) % Eos % (Auto) 0.5 (0.0-4.0) % Baso % (Auto) 0.2 (0.2-1.2) % Sodium 139 (136-145) mmol/L Potassium 3.8 (3.5-5.1) mmol/L Chloride 103 (98-107) mmol/L Carbon Dioxide 22 (21-32) mmol/L Anion Gap 17.8 (10-20) mmol/L BUN 13 (7-18) mg/dL Creatinine 0.9 (0.55-1.02) mg/dL Est Cr Clr Drug Dosing TNP Estimated GFR (MDRD) > 60 Glucose 119 H (74-106) mg/dL Calcium 9.7 (8.5-10.1) mg/dL Meds: Medications Discontinued Medications Generic Name Dose Route Start Last Admin Trade Name Freq PRN Reason Stop Dose Admin Diltiazem HCl 10 mg 02/07/19 12:56 02/07/19 13:02 Cardizem IVPUSH 02/07/19 12:57 10 mg ONETIME ONE Administration Diltiazem HCl 10 mg 02/07/19 13:24 02/07/19 13:26 Cardizem IVPUSH 02/07/19 13:25 10 mg ONETIME ONE Administration Departure - Departure Time of Disposition: 13:40 Disposition: Home, Self-Care 01 Condition: Good Clinical Impression: Tachycardia Instructions: Sinus Tachycardia Forms: ED Department Discharge - My Orders Last 24 Hours: My Active Orders 02/07/19 12:58 EKG 12 Lead [EKG Documentation Completion] [RC] STAT - Assessment/Plan Last 24 Hours: My Active Orders 02/07/19 12:58 EKG 12 Lead [EKG Documentation Completion] [RC] STAT
[2019-02-07 13:30] LABS: ANION GAP 17.8 mmol/L (10-20); CHLORIDE,CL 103 mmol/L (98-107); SODIUM,NA 139 mmol/L (136-145)
[2019-02-07 15:21] VITALS: BP 155/82; PULSE 80
== END 2019-02-07 13:45 | disposition home or self-care (01) ==
LOC: VM.ED 12:28
DX: R00.0 Tachycardia, unspecified (principal); I10 Essential (primary) hypertension; Z88.2 Allergy status to sulfonamides; Z88.0 Allergy status to penicillin; Z88.1 Allergy status to other antibiotic agents; Z88.8 Allergy status to other drugs, medicaments and biological substances; Z79.899 Other long term (current) drug therapy
CPT/HCPCS: 36415; 80048; 85025; 93005; 96374; 99285-25; J3490

== ENCOUNTER 2019-11-04 15:52 | Emergency (ER) | payer OTHER ==
--- NOTE | 2019-11-04 15:56 | EDM.PDOC ---
ED HPI GENERAL MEDICAL PROBLEM - General Stated Complaint: RAPID HEART BEAT Time Seen by Provider: 11/04/19 15:56 Source of Information: Reports: Patient History Limitations: Reports: No Limitations - History of Present Illness INITIAL COMMENTS - FREE TEXT/NARRATIVE: Patient comes emergency department today with complaints of fast heartbeat. This patient for the past couple of hours has had a very elevated heart rate at home. She has a longstanding history of SVT which she has 4-5 episodes of this a year. She does take metoprolol daily to prevent this. She has not missed any doses of it. She did try vagal maneuvers and other directed maneuvers that she is received from cardiology in the past without success. She has been evaluated by electrophysiology for a ablation although she has chosen not to do so. She has no chest pain shortness of breath or difficulty breathing. No syncope. No weakness. No fever no chills. She has had no recent nausea vomiting or diarrhea. 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 ED EXAM, GENERAL - Physical Exam Exam: See Below Exam Limited By: No Limitations General Appearance: Alert, WD/WN, No Apparent Distress Eye Exam: Bilateral Eye: EOMI Ears: Normal External Exam, Normal TMs Nose: Normal Inspection Throat/Mouth: Normal Inspection Head: Atraumatic, Normocephalic Neck: Normal Inspection, Supple Respiratory/Chest: No Respiratory Distress, Lungs Clear, Normal Breath Sounds, No Accessory Muscle Use, Chest Non-Tender Cardiovascular: Normal Peripheral Pulses, Regular Rate, Rhythm, Tachycardia (165 ) Peripheral Pulses: 2+: Radial (L), Radial (R), Posterior Tibial (L), Posterior Tibial (R), Dorsalis Pedis (L), Dorsalis Pedis (R) GI/Abdominal: Normal Bowel Sounds, Soft, Non-Tender (Female) Exam: Deferred Rectal (Female) Exam: Deferred Back Exam: Normal Inspection, Full Range of Motion Extremities: Normal Inspection, Normal Range of Motion, Non-Tender, No Pedal Edema, Normal Capillary Refill Neurological: Alert, Oriented, CN II-XII Intact, Normal Cognition, Normal Gait, Normal Reflexes, No Motor/Sensory Deficits Psychiatric: Normal Affect, Normal Mood Skin Exam: Warm, Dry, Intact, Normal Color, No Rash EKG INTERPRETATION EKG Date: 11/04/19 Time: 15:53 Rhythm: Other (SVT) Rate (Beats/Min): 169 [place]: Normal P-Wave: Present QRS: Normal ST-T: Normal QT: Normal Comparison: Change From Previous EKG Course - Orders/Labs/Meds Orders: Active Orders 24 hr Category Date Time Status EKG Documentation Completion [RC] STAT Care 11/04/19 16:01 Active EKG Documentation Completion [RC] STAT Care 11/04/19 17:14 Active Sodium Chloride 0.9% [Saline Flush] Med 11/04/19 16:01 Active 10 ml FLUSH ASDIRECTED PRN Peripheral IV Insertion Adult [OM.PC] Stat Oth 11/04/19 16:01 Ordered Medication Orders Sodium Chloride (Saline Flush) 10 ml FLUSH ASDIRECTED PRN PRN Reason: Keep Vein Open Labs: Laboratory Tests 11/04/19 11/04/19 Range/Units 16:10 16:10 WBC 9.6 (4.0-10.0) x10^3/uL RBC 4.50 (4.00-5.50) x10^6/uL Hgb 14.4 (12.0-16.0) g/dL Hct 41.9 (33.0-47.0) % MCV 93.1 H (78.0-93.0) fL MCH 32.0 (26.0-32.0) pg MCHC 34.4 (32.0-36.0) g/dL RDW Coeff of Adelaida 12.6 (10.0-15.0) % Plt Count 229 (130-400) x10^3/uL Neut % (Auto) 70.7 (50.0-80.0) % Lymph % (Auto) 21.7 L (25.0-50.0) % Coal % (Auto) 6.5 (2.0-11.0) % Eos % (Auto) 0.9 (0.0-4.0) % Baso % (Auto) 0.2 (0.2-1.2) % Sodium 141 (136-145) mmol/L Potassium 3.7 (3.5-5.1) mmol/L Chloride 105 (98-107) mmol/L Carbon Dioxide 21 (21-32) mmol/L Anion Gap 18.7 (10-20) mmol/L BUN 15 (7-18) mg/dL Creatinine 1.0 (0.55-1.02) mg/dL Est Cr Clr Drug Dosing TNP Estimated GFR (MDRD) 57 Glucose 138 H (74-106) mg/dL Calcium 9.5 (8.5-10.1) mg/dL Corrected Calcium 9.50 (8.5-10.1) mg/dL Total Bilirubin 0.5 (0.2-1.0) mg/dL AST 24 (15-37) U/L ALT 30 (14-59) U/L Alkaline Phosphatase 108 (46-116) U/L Troponin I < 0.017 (<=0.056) ng/mL Total Protein 7.6 (6.4-8.2) g/dL Albumin 4.0 (3.4-5.0) g/dL Globulin 3.6 Albumin/Globulin Ratio 1.11 TSH, Ultra Sensitive 2.150 (0.358-3.74) uIU/mL Meds: Medications Generic Name Dose Route Start Last Admin Trade Name Freq PRN Reason Stop Dose Admin Sodium Chloride 10 ml 11/04/19 16:01 Saline Flush FLUSH ASDIRECTED PRN Keep Vein Open Discontinued Medications Generic Name Dose Route Start Last Admin Trade Name Freq PRN Reason Stop Dose Admin Diltiazem HCl 25 mg 11/04/19 16:02 11/04/19 16:20 Cardizem IVPUSH 11/04/19 16:03 25 mg ONETIME ONE Administration - Re-Assessments/Exams Free Text/Narrative Re-Assessment/Exam: 11/04/19 16:10 Patient's EKG she is clearly in SVT. She refuses the use of Adenosine and would prefer Cardizem. Cardizem 25mg IVP 11/04/19 18:53 The patient received 25 mg of Cardizem and converted out of SVT into the normal sinus rhythm in the 90s. Repeat EKG at 1721 shows a normal sinus rhythm with a rate of [address] elevation or depression when reviewed extemporaneously by myself. Her palpitations and racing heart sensation is resolved. She was monitored over the next hour and had no recurrence of the SVT. She did take an extra dose of 50 mg of metoprolol prior to arrival in the emergency department. I would still like her to take her 100 mg of metoprolol tonight. I still advised that she considers the ablation as she has had recurrence of SVT for many years. She is understanding this her questions are answered. Departure - Departure Time of Disposition: 17:11 Disposition: Home, Self-Care 01 Clinical Impression: SVT (supraventricular tachycardia) Instructions: Cardiac Ablation, [id number] Referrals: Jyoti Boston, [Primary Care Provider] - Additional Instructions: Continue with previous medications. Continue to ponder the thought of the ablation. Return to the ED if new or worsening symptoms. Sepsis Event Note - Focused Exam Date Exam was Performed: 11/04/19 Time Exam was Performed: 18:52 - My Orders Last 24 Hours: My Active Orders 11/04/19 16:01 EKG Documentation Completion [RC] STAT Sodium Chloride 0.9% [Saline Flush] 10 ml FLUSH ASDIRECTED PRN Peripheral IV Insertion Adult [OM.PC] Stat 11/04/19 17:14 EKG Documentation Completion [RC] STAT - Assessment/Plan Last 24 Hours: My Active Orders 11/04/19 16:01 EKG Documentation Completion [RC] STAT Sodium Chloride 0.9% [Saline Flush] 10 ml FLUSH ASDIRECTED PRN Peripheral IV Insertion Adult [OM.PC] Stat 11/04/19 17:14 EKG Documentation Completion [RC] STAT Assessment:: SVT converted with Cardizem. Plan: Continue with previous medications. Continue to ponder the thought of the ablation. Return to the ED if new or worsening symptoms.
[2019-11-04] MEDS ORDERED: Sodium Chloride 0.9% 10 ML Syringe FLUSH PRN (16:01)
[2019-11-04] MEDS ORDERED: Diltiazem 50 MG/10 ML SDV IVPUSH ONE (16:02)
[2019-11-04 16:47] LABS: ANION GAP 18.7 mmol/L (10-20); CHLORIDE,CL 105 mmol/L (98-107); SODIUM,NA 141 mmol/L (136-145)
[2019-11-04 19:43] VITALS: BP 175/101
[2019-11-04 19:44] VITALS: PULSE 87
== END 2019-11-04 17:35 | disposition home or self-care (01) ==
LOC: VM.ED 15:52
DX: I47.1 Supraventricular tachycardia (principal); Z88.6 Allergy status to analgesic agent; Z88.1 Allergy status to other antibiotic agents; Z88.0 Allergy status to penicillin; Z88.2 Allergy status to sulfonamides; Z79.899 Other long term (current) drug therapy
CPT/HCPCS: 80053; 84443; 84484; 85025; 93005; 96374; 99285-25; J3490

== ENCOUNTER 2020-01-22 19:27 | Emergency (ER) | payer OTHER ==
[2020-01-22] MEDS ORDERED: Sodium Chloride 0.9% 10 ML Syringe FLUSH PRN (19:32)
[2020-01-22] MEDS ORDERED: Sodium Chloride 0.9% 1,000 ML IV ONE (19:33)
[2020-01-22] MEDS ORDERED: Diltiazem 50 MG/10 ML SDV IVPUSH ONE (19:33)
--- NOTE | 2020-01-22 19:44 | EDM.PDOC ---
ED HPI GENERAL MEDICAL PROBLEM - General Time Seen by Provider: 01/22/20 19:32 Source of Information: Reports: Patient - History of Present Illness INITIAL COMMENTS - FREE TEXT/NARRATIVE: Mary Kay is a 59 y/o female who presents to the ER stating her heart is beating too fast. She has a long standing history of SVT. About 2 hours ago, she felt her heart racing and tried vagal maneuvers and other directed maneuvers she was given by cardiology to convert her. Nothing worked. She does report having to come to the ER about 2x a year, but she has more bouts of this at home is able to convert it. She does take Metoprolol regularly and does not miss any doses. She is not short of breath and is denying any chest pain at this time. She was just at home when this started and denied anything that aggravates her sx. She has seen cardiology about a year ago and ablation was discussed, however she has decided not to proceed at this time. She did drive herself to the ER tonight. 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: Psychiatric History: Reports: Depression - Past Surgical History Cardiovascular Surgical History: Reports: None Social & Family History - Family History Family Medical History: Noncontributory Cardiac: Reports: Bypass Other Cardiac Family History: father >60 years of age - Caffeine Use Caffeine Use: Reports: None Review of Systems - Review of Systems Review Of Systems: See Below Constitutional: Reports: No Symptoms Eyes: Reports: No Symptoms Ears: Reports: No Symptoms Nose: Reports: No Symptoms Mouth/Throat: Reports: No Symptoms Respiratory: Reports: No Symptoms Cardiovascular: Reports: Palpitations GI/Abdominal: Reports: No Symptoms Genitourinary: Reports: No Symptoms Musculoskeletal: Reports: No Symptoms Skin: Reports: No Symptoms Neurological: Reports: No Symptoms Psychiatric: Reports: No Symptoms ED EXAM, GENERAL - Physical Exam Exam: See Below Exam Limited By: No Limitations General Appearance: Alert, WD/WN, No Apparent Distress (Adult female. Comfortable and answers questions.) Ears: Hearing Grossly Normal Nose: Normal Inspection Throat/Mouth: Normal Inspection, Normal Lips, Normal Teeth, Normal Voice Head: Atraumatic, Normocephalic Neck: Normal Inspection, Supple, Non-Tender Respiratory/Chest: No Respiratory Distress, Lungs Clear, Chest Non-Tender Cardiovascular: JVD, Tachycardia GI/Abdominal: Normal Bowel Sounds, Soft (Female) Exam: Deferred Rectal (Female) Exam: Deferred Back Exam: Normal Inspection, Full Range of Motion Extremities: Normal Inspection, Normal Range of Motion, Normal Capillary Refill Neurological: Alert, Oriented, CN II-XII Intact, Normal Cognition, Normal Gait Psychiatric: Normal Affect, Normal Mood Skin Exam: Warm, Dry, Intact, Normal Color Lymphatic: No Adenopathy EKG INTERPRETATION EKG Date: 01/22/20 Time: 19:27 Rhythm: Other (SVT) Rate (Beats/Min): 159 [place]: Normal QRS: Normal ST-T: Normal QT: Normal Comparison: Change From Previous EKG (Previous EKG 10/2019 was NSR) EKG Interpretation Comments: SVT EKG Repeated at 194 when patient noted to be converted to NSR on monitor. Converted immediately following Cardizem dose. Course - Vital Signs Text/Narrative:: The patient was seen by the FILM LIBRARIAN. Labs and EKG ordered. SL placed and IV bolus started. Cardizem 20 mg IVP given and before nurse was done giving the medication, patient converted to a NSR and she reports symptoms gone. Labs reviewed. Patient was anxious to go home and did not want to finish the liter of fluid. She was given discharge instructions and left the ER in stable condition. - Orders/Labs/Meds Orders: Active Orders 24 hr Category Date Time Status CBC WITH AUTO DIFF [HEME] Stat Lab 01/22/20 19:33 Ordered COMPREHENSIVE METABOLIC PN,CMP [CHEM] Stat Lab 01/22/20 19:33 Ordered LACTATE DEHYDROGENASE,LDH [CHEM] Stat Lab 01/22/20 19:33 Ordered MAGNESIUM [CHEM] Stat Lab 01/22/20 19:33 Ordered TROPONIN I [CHEM] Stat Lab 01/22/20 19:33 Ordered Sodium Chloride 0.9% @ Wide Open(1,000ml) Med 01/22/20 19:33 Ordered Sodium Chloride 0.9% [Normal Saline] 1,000 ml IV ONETIME Sodium Chloride 0.9% [Saline Flush] Med 01/22/20 19:32 Ordered 10 ml FLUSH ASDIRECTED PRN Saline Lock Insert [OM.PC] Stat Oth 01/22/20 19:33 Ordered Medication Orders Sodium Chloride (Normal Saline) 1,000 mls @ 999 mls/hr IV ONETIME ONE Stop: 01/22/20 20:33 Last Admin: 01/22/20 19:42 Dose: 999 mls/hr Documented by: Sodium Chloride (Saline Flush) 10 ml FLUSH ASDIRECTED PRN PRN Reason: Keep Vein Open Meds: Medications Generic Name Dose Route Start Last Admin Trade Name Freq PRN Reason Stop Dose Admin Sodium Chloride 1,000 mls @ 999 mls/hr 01/22/20 19:33 01/22/20 19:42 Normal Saline IV 01/22/20 20:33 999 mls/hr ONETIME ONE Administration Sodium Chloride 10 ml 01/22/20 19:32 Saline Flush FLUSH ASDIRECTED PRN Keep Vein Open Discontinued Medications Generic Name Dose Route Start Last Admin Trade Name Freq PRN Reason Stop Dose Admin Diltiazem HCl 20 mg 01/22/20 19:33 Cardizem IVPUSH 01/22/20 19:34 ONETIME ONE Departure - Departure Time of Disposition: 20:26 Disposition: Home, Self-Care 01 Condition: Good Clinical Impression: SVT (supraventricular tachycardia), Paroxysmal supraventricular tachycardia - Discharge Information *PRESCRIPTION DRUG MONITORING PROGRAM REVIEWED*: Not Applicable *COPY OF PRESCRIPTION DRUG MONITORING REPORT IN PATIENT YAMILKA: Not Applicable Instructions: Cardiac Ablation, [id number], Supraventricular Tachycardia, Adult, [id number] Additional Instructions: -Continue current medications as prescribed. -Stay well hydrated -Continue Vagal maneuvers or other directed maneuvers if symptoms return -If you consider an ablation, follow up with cardiology -Return to the ER as needed - My Orders Last 24 Hours: My Active Orders 01/22/20 19:32 Sodium Chloride 0.9% [Saline Flush] 10 ml FLUSH ASDIRECTED PRN 01/22/20 19:33 CBC WITH AUTO DIFF [HEME] Stat COMPREHENSIVE METABOLIC PN,CMP [CHEM] Stat LACTATE DEHYDROGENASE,LDH [CHEM] Stat MAGNESIUM [CHEM] Stat TROPONIN I [CHEM] Stat Sodium Chloride 0.9% @ Wide Open(1,000ml) Sodium Chloride 0.9% [Normal Saline] 1,000 ml IV ONETIME Saline Lock Insert [OM.PC] Stat - Assessment/Plan Last 24 Hours: My Active Orders 01/22/20 19:32 Sodium Chloride 0.9% [Saline Flush] 10 ml FLUSH ASDIRECTED PRN 01/22/20 19:33 CBC WITH AUTO DIFF [HEME] Stat COMPREHENSIVE METABOLIC PN,CMP [CHEM] Stat LACTATE DEHYDROGENASE,LDH [CHEM] Stat MAGNESIUM [CHEM] Stat TROPONIN I [CHEM] Stat Sodium Chloride 0.9% @ Wide Open(1,000ml) Sodium Chloride 0.9% [Normal Saline] 1,000 ml IV ONETIME Saline Lock Insert [OM.PC] Stat
[2020-01-22 20:25] LABS: ANION GAP 16.8 mmol/L (10-20); CHLORIDE,CL 105 mmol/L (98-107); SODIUM,NA 141 mmol/L (136-145)
[2020-01-22 20:48] VITALS: BP 139/85; PULSE 74
== END 2020-01-22 20:35 | disposition home or self-care (01) ==
LOC: VM.ED 19:27
DX: I47.1 Supraventricular tachycardia (principal); I10 Essential (primary) hypertension; Z88.6 Allergy status to analgesic agent; Z88.0 Allergy status to penicillin; Z88.2 Allergy status to sulfonamides; Z88.1 Allergy status to other antibiotic agents; Z79.899 Other long term (current) drug therapy
CPT/HCPCS: 36415; 80053; 83615; 83735; 84484; 85025; 93005; 93010; 96374; 99284; 99285-25; J3490; J7030

== ENCOUNTER 2020-02-15 16:58 | Emergency (ER) | payer OTHER ==
[2020-02-15] MEDS ORDERED: Sodium Chloride 0.9% 10 ML Syringe FLUSH PRN (17:15)
[2020-02-15] MEDS: Sodium Chloride 0.9% 1,000 ML IV ONE (17:24)
[2020-02-15] MEDS: Diltiazem 50 MG/10 ML SDV IVPUSH ONE (17:24)
--- NOTE | 2020-02-15 17:26 | EDM.PDOC ---
ED HPI GENERAL MEDICAL PROBLEM - General Chief Complaint: Cardiovascular Problem Stated Complaint: rapid heart beat Time Seen by Provider: 02/15/20 17:10 Source of Information: Reports: Patient History Limitations: Reports: No Limitations - History of Present Illness INITIAL COMMENTS - FREE TEXT/NARRATIVE: Patient comes emergency department today with complaints of a rapid heartbeat. Patient states that she has A longstanding history of SVT. She normally only has about 3-4 episodes in a year however she is on episode #6 or 7 this year alone. Patient has been evaluated by cardiology in the past with recommendations to have an ablation completed if rapid heart rate does continue. Patient states that she was just recently in within the month regarding a rapid heartbeat. She states that the Cardizem that was used last time did not treat the rapid heartbeat. However the Cardizem in the past has slowed her heart rate down. Patient states that this does come out of nowhere. She Try using the Vagal maneuvers and other directed maneuvers per her bus matron's recommendations without success. Patient is also on a beta-lucille to help reduce the risk of a rapid heartbeat. Patient also did take an extra dose of her metoprolol today to help after the heart rate did increase without success. Patient states the episode has been going on now for about 2 hours Without success. Patient states she is not experiencing any chest pain, shortness of breath, dizziness, lightheadedness, blurred vision, headache, nausea, vomiting, GI upset, or peripheral edema. Patient also states she has been relatively healthy and has no concerns regarding COVID19. Onset: Sudden Quality: Reports: Other Severity: Mild Improves with: Reports: None Worsens with: Reports: None Treatments IN TUBE CONVERSION TECHNICIAN: Denies: Other (see below) (Patient took an extra dose of metoprolol) - Related Data Allergies Allergy/AdvReac Type Severity Reaction Status Date / Time aspirin Allergy Hives Verified 01/22/20 20:22 cefprozil [From Cefzil] Allergy Hives Verified 01/22/20 20:22 penicillin Allergy Hives Verified 01/22/20 20:22 Sulfa (Sulfonamide Allergy Hives Verified 01/22/20 20:22 Antibiotics) Home Meds: Home Meds Metoprolol Tartrate 100 mg PO BID 12/21/14 [History] ALPRAZolam [Alprazolam] 0.25 mg PO Q4H PRN 12/15/16 [History] Past Medical History Cardiovascular History: Reports: Arrhythmia, Hypertension, Other (See Below) 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: Psychiatric History: Reports: Depression - Past Surgical History Cardiovascular Surgical History: Reports: None Social & Family History - Family History Family Medical History: Noncontributory Cardiac: Reports: Bypass Other Cardiac Family History: father >60 years of age - Caffeine Use Caffeine Use: Reports: None ED ROS GENERAL - Review of Systems Review Of Systems: See Below Constitutional: Reports: No Symptoms HEENT: Reports: No Symptoms Respiratory: Reports: No Symptoms Endocrine: Reports: No Symptoms GI/Abdominal: Reports: No Symptoms : Reports: No Symptoms Musculoskeletal: Reports: No Symptoms Skin: Reports: No Symptoms Neurological: Reports: No Symptoms Psychiatric: Reports: No Symptoms Hematologic/Lymphatic: Reports: No Symptoms Immunologic: Reports: No Symptoms ED EXAM, GENERAL - Physical Exam Exam: See Below Exam Limited By: No Limitations General Appearance: Alert, WD/WN, No Apparent Distress Head: Atraumatic, Normocephalic Neck: Normal Inspection, Supple, Non-Tender, Full Range of Motion Respiratory/Chest: No Respiratory Distress, Lungs Clear, Normal Breath Sounds, No Accessory Muscle Use, Chest Non-Tender Cardiovascular: Normal Peripheral Pulses, Regular Rate, Rhythm, No Edema Extremities: Normal Inspection, Normal Range of Motion, Non-Tender, Normal Capillary Refill Neurological: Alert, Oriented, Normal Gait Psychiatric: Normal Affect, Normal Mood Skin Exam: Warm, Dry, Intact, Normal Color Course - Orders/Labs/Meds Orders: Active Orders 24 hr Category Date Time Status EKG Documentation Completion [RC] STAT Care 02/15/20 17:15 Active Sodium Chloride 0.9% [Normal Saline] 1,000 ml Med 02/15/20 17:16 Active IV ONETIME Sodium Chloride 0.9% [Saline Flush] Med 02/15/20 17:15 Active 10 ml FLUSH ASDIRECTED PRN Peripheral IV Insertion Adult [OM.PC] Stat Oth 02/15/20 17:15 Ordered Medication Orders Sodium Chloride (Normal Saline) 1,000 mls @ 1,000 mls/hr IV ONETIME ONE Stop: 02/15/20 18:15 Sodium Chloride (Saline Flush) 10 ml FLUSH ASDIRECTED PRN PRN Reason: Keep Vein Open Meds: Medications Generic Name Dose Route Start Last Admin Trade Name Freq PRN Reason Stop Dose Admin Sodium Chloride 1,000 mls @ 1,000 mls/hr 02/15/20 17:16 Normal Saline IV 02/15/20 18:15 ONETIME ONE Sodium Chloride 10 ml 02/15/20 17:15 Saline Flush FLUSH ASDIRECTED PRN Keep Vein Open Discontinued Medications Generic Name Dose Route Start Last Admin Trade Name Freq PRN Reason Stop Dose Admin Diltiazem HCl 20 mg 02/15/20 17:15 Cardizem IVPUSH 02/15/20 17:16 ONETIME ONE - Re-Assessments/Exams Free Text/Narrative Re-Assessment/Exam: 02/15/20 17:29 pt converted after minutes of receiving Cardizem. heart palpitations resolved patient states she feels back to her baseline. Does not wish to have labs completed. Would like to go home but is willing but hesitant to stay at least an hour for monitoring. Departure - Departure Time of Disposition: 18:30 Disposition: Home, Self-Care 01 Condition: Good Clinical Impression: SVT (supraventricular tachycardia), Heart palpitations Instructions: Supraventricular Tachycardia, Adult, [id number] Referrals: Jyoti Boston DO [Primary Care Provider] - Additional Instructions: 1. rest 2. increase your water intake 3. Continue all at home medications 4. Activity and diet as tolerated 5. Can take over the counter Tylenol for any pain or discomfort 6. Follow up with PCP if symptoms continue, return, or progress 7. Call with any questions or concerns 8. Recommendation is to contact your bus matron for further evaluation and medical/surgical management regarding increased episodes of SVT. - My Orders Last 24 Hours: My Active Orders 02/15/20 17:15 EKG Documentation Completion [RC] STAT Sodium Chloride 0.9% [Saline Flush] 10 ml FLUSH ASDIRECTED PRN Peripheral IV Insertion Adult [OM.PC] Stat 02/15/20 17:16 Sodium Chloride 0.9% [Normal Saline] 1,000 ml IV ONETIME - Assessment/Plan Last 24 Hours: My Active Orders 02/15/20 17:15 EKG Documentation Completion [RC] STAT Sodium Chloride 0.9% [Saline Flush] 10 ml FLUSH ASDIRECTED PRN Peripheral IV Insertion Adult [OM.PC] Stat 02/15/20 17:16 Sodium Chloride 0.9% [Normal Saline] 1,000 ml IV ONETIME Assessment:: 1. heart palpitations 2. Stable SVT Plan: 1. Patient refusing wanting Labs to be completed in the ER. 2. IV initiated in the emergency department 3. IV fluids provided 4. Cardizam 20mg IV given 5. 1 L Normal Saline given 6. EKG completed before and after medication induced conversion 7. Patient and nursing staff was updated regarding the plan of care 8. Education provided the patient regarding activity, diet, rest, [id number] medication modalities, and follow-up care was provided 9. Patient and family are agreeable to the above plan of care 10. All questions and concerns were addressed with the patient and family prior to discharge
[2020-02-15 18:47] VITALS: BP 161/88; PULSE 78
== END 2020-02-15 18:40 | disposition home or self-care (01) ==
LOC: VM.ED 16:58
DX: I47.1 Supraventricular tachycardia (principal); I10 Essential (primary) hypertension; Z88.2 Allergy status to sulfonamides; Z88.0 Allergy status to penicillin; Z88.1 Allergy status to other antibiotic agents; Z79.899 Other long term (current) drug therapy; Z88.6 Allergy status to analgesic agent
CPT/HCPCS: 93005; 96361; 96374; 99284; 99284-25; J3490; J7030

== ENCOUNTER 2020-03-17 19:24 | Emergency (ER) | payer OTHER ==
[2020-03-17] MEDS ORDERED: Sodium Chloride 0.9% 10 ML Syringe FLUSH PRN (19:34)
[2020-03-17] MEDS ORDERED: Diltiazem 50 MG/10 ML SDV IVPUSH ONE (19:35)
--- NOTE | 2020-03-17 19:46 | EDM.PDOC ---
ED HPI GENERAL MEDICAL PROBLEM - General Stated Complaint: fast heart rate Time Seen by Provider: 03/17/20 19:30 Source of Information: Reports: Patient History Limitations: Reports: No Limitations - History of Present Illness INITIAL COMMENTS - FREE TEXT/NARRATIVE: Patient comes emergency department today with complaints of tachycardia. This patient has a longstanding history of recurrent SVT. She is currently being evaluated and finally made the decision to complete a follow-up for possible ablation. She has had no change in her medications or therapies. At approximately 4:00 today she felt her heart starting to race very fast. She has a pounding sensation in her chest. She has had no syncope. She has some tightness in her chest but this is typical of her SVT. She did take an extra 50 mg of her metoprolol prior to arrival. She did try some vagal maneuvers without response. She has otherwise been healthy. No change in her medication. No fever no chills no cough congestion. No vomiting or diarrhea recently. No abdominal pain. No syncope. No headache. No visual disturbances. No hematuria dysuria Zachariah frequency. She is otherwise been healthy. NO COVID exposure no COVID symptoms. 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 ED EXAM, GENERAL - Physical Exam Exam: See Below Exam Limited By: No Limitations General Appearance: Alert, WD/WN, No Apparent Distress Head: Atraumatic, Normocephalic Neck: Normal Inspection, Supple, Non-Tender, Full Range of Motion Respiratory/Chest: No Respiratory Distress, Lungs Clear, Normal Breath Sounds, No Accessory Muscle Use, Chest Non-Tender Cardiovascular: Normal Peripheral Pulses, Regular Rate, Rhythm, Tachycardia Peripheral Pulses: 2+: Radial (L), Radial (R), Posterior Tibial (L), Posterior Tibial (R), Dorsalis Pedis (L), Dorsalis Pedis (R) GI/Abdominal: Normal Bowel Sounds, Soft, Non-Tender (Female) Exam: Deferred Rectal (Female) Exam: Deferred Back Exam: Normal Inspection Extremities: Normal Inspection, Normal Range of Motion, Non-Tender, No Pedal Edema, Normal Capillary Refill Neurological: Alert, Oriented, Normal Cognition, Normal Gait, No Motor/Sensory Deficits Psychiatric: Normal Affect, Normal Mood Skin Exam: Warm, Dry, Intact, Normal Color, No Rash Lymphatic: No Adenopathy #1 Interpretation EKG Date: 03/17/20 Time: 19:33 Rhythm: Other (Junctional tach, no p waves) Rate (Beats/Min): 149 [place]: Normal P-Wave: Absent QRS: Normal ST-T: Normal QT: Normal Comparison: No Change #2 Interpretation EKG Date: 03/17/20 Time: 20:00 Rhythm: NSR Rate (Beats/Min): 7 [place]: Normal P-Wave: Present QRS: Normal ST-T: Normal QT: Normal Comparison: Change From Previous EKG (Converted from SVT) Course - Vital Signs Last Recorded V/S: Last Vital Signs Temp 99.2 F 03/17/20 19:24 Pulse 151 H 03/17/20 19:24 Resp 16 03/17/20 20:07 BP 152/82 H 03/17/20 20:07 Pulse Ox 99 03/17/20 20:07 - Orders/Labs/Meds Orders: Active Orders 24 hr Category Date Time Status Peripheral IV Insertion Adult [OM.PC] Stat Oth 03/17/20 19:34 Ordered Labs: Laboratory Tests 03/17/20 03/17/20 03/17/20 Range/Units 19:43 19:43 19:43 WBC 10.1 H (4.0-10.0) x10^3/uL RBC 4.52 (4.00-5.50) x10^6/uL Hgb 14.4 (12.0-16.0) g/dL Hct 41.8 (33.0-47.0) % MCV 92.5 (78.0-93.0) fL MCH 31.9 (26.0-32.0) pg MCHC 34.4 (32.0-36.0) g/dL RDW Coeff of Adelaida 12.2 (10.0-15.0) % Plt Count 239 (130-400) x10^3/uL Neut % (Auto) 61.9 (50.0-80.0) % Lymph % (Auto) 27.8 (25.0-50.0) % Clark % (Auto) 9.0 (2.0-11.0) % Eos % (Auto) 1.1 (0.0-4.0) % Baso % (Auto) 0.2 (0.2-1.2) % Sodium 138 (136-145) mmol/L Potassium 3.8 (3.5-5.1) mmol/L Chloride 102 (98-107) mmol/L Carbon Dioxide 23 (21-32) mmol/L Anion Gap 16.8 (10-20) mmol/L BUN 16 (7-18) mg/dL Creatinine 0.9 (0.55-1.02) mg/dL Est Cr Clr Drug Dosing TNP Estimated GFR (MDRD) > 60 Glucose 122 H (74-106) mg/dL Calcium 9.6 (8.5-10.1) mg/dL Corrected Calcium 9.60 (8.5-10.1) mg/dL Total Bilirubin 0.4 (0.2-1.0) mg/dL AST 23 (15-37) U/L ALT 28 (14-59) U/L Alkaline Phosphatase 105 (46-116) U/L Troponin I < 0.017 (<=0.056) ng/mL Total Protein 7.6 (6.4-8.2) g/dL Albumin 4.0 (3.4-5.0) g/dL Globulin 3.6 Albumin/Globulin Ratio 1.11 TSH, Ultra Sensitive 2.607 (0.358-3.74) uIU/mL Meds: Medications Discontinued Medications Generic Name Dose Route Start Last Admin Trade Name Mohan PRN Reason Stop Dose Admin Diltiazem HCl 25 mg 03/17/20 19:35 03/17/20 19:52 Cardizem IVPUSH 03/17/20 19:36 25 mg ONETIME ONE Administration Sodium Chloride 10 ml 03/17/20 19:34 Saline Flush FLUSH ASDIRECTED PRN Keep Vein Open - Re-Assessments/Exams Free Text/Narrative Re-Assessment/Exam: 03/17/20 19:46 This patient refuses to have adenosine as she has with me in the past previously. EKG shows Junc tach at 150 although her p waves are probably buried at this time. Cardizem 25mg IVP Labs pending. Following the Cardizem the patient quickly converted back into sinus rhythm in the 60s to 70s. Repeat EKG shows conversion of the rhythm and a normal sinus rhythm in the 60s to 70s. The palpitations and pressure in her chest is resolved. Laboratory evaluation is unremarkable. Typically like to observe this patient for about an hour or so following the conversion to ensure that it remains although the patient wants to get going and typically does well for her. 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 Discharge instructions as below are explained to the patient she was comfortable with this plan and her questions were answered. Departure - Departure Time of Disposition: 20:40 Disposition: Home, Self-Care 01 Clinical Impression: SVT (supraventricular tachycardia) Instructions: Cardiac Ablation, [id number], Supraventricular Tachycardia, Adult, [id number] Referrals: Jyoti Boston, [Primary Care Provider] - Additional Instructions: Keep your appointments with Cardiology as before. Continue previous medications. Return to the ED if new or worsening symptoms. - My Orders Last 24 Hours: My Active Orders 03/17/20 19:34 Peripheral IV Insertion Adult [OM.PC] Stat - Assessment/Plan Last 24 Hours: My Active Orders 03/17/20 19:34 Peripheral IV Insertion Adult [OM.PC] Stat
[2020-03-17 20:14] LABS: CHLORIDE,CL 102 mmol/L (98-107); SODIUM,NA 138 mmol/L (136-145)
[2020-03-17 20:18] LABS: ANION GAP 16.8 mmol/L (10-20)
[2020-03-17 21:23] VITALS: PULSE 151
[2020-03-17 22:01] VITALS: BP 152/82
== END 2020-03-17 20:45 | disposition home or self-care (01) ==
LOC: VM.ED 19:24
DX: I47.1 Supraventricular tachycardia (principal); I10 Essential (primary) hypertension; Z88.6 Allergy status to analgesic agent; Z88.1 Allergy status to other antibiotic agents; Z88.0 Allergy status to penicillin; Z88.2 Allergy status to sulfonamides; Z79.899 Other long term (current) drug therapy
CPT/HCPCS: 80053; 84443; 84484; 85025; 93005; 93010; 96374; 99284; 99285-25; J3490

== ENCOUNTER 2021-10-13 08:10 | Emergency (ER) | payer OTHER ==
[2021-10-13 09:24] LABS: ANION GAP 19.4 mmol/L (5-15)
[2021-10-13 10:34] VITALS: BP 162/100; PULSE 81
== END 2021-10-13 10:00 | disposition home or self-care (01) ==
LOC: VM.ED 08:10
DX: R00.0 Tachycardia, unspecified (principal); I10 Essential (primary) hypertension; Z79.899 Other long term (current) drug therapy; Z88.6 Allergy status to analgesic agent; Z88.1 Allergy status to other antibiotic agents; Z88.0 Allergy status to penicillin; Z88.2 Allergy status to sulfonamides
CPT/HCPCS: 80048; 85025; 93010; 99284; 99285-25

== ENCOUNTER 2022-11-13 22:11 | Emergency (ER) | payer OTHER ==
[2022-11-13] MEDS ORDERED: Sodium Chloride 0.9% 10 ML Syringe FLUSH PRN (22:24)
[2022-11-13 22:34] LABS: BASOPHILS PERCENT AUTO 0.2 % (0.2-1.2); EOSINOPHILS ABSOLUTE AUTO 0.1 x10^3/uL (0.0-0.5); HEMATOCRIT 41.6 % (33.0-47.0); IMMATURE GRAN ABSOLUTE AUTO 0.01 x10^3/uL (0.00-0.07); LYMPHOCYTES ABSOLUTE AUTO 3.5 x10^3/uL (1.0-4.8); LYMPHOCYTES PERCENT AUTO 35.2 % (25.0-50.0); MEAN CORPUSCULAR HEMOGLOBIN 33.2 pg (26.0-32.0); MEAN CORPUSCULAR HGB CONC 36.1 g/dL (32.0-36.0); MONOCYTES PERCENT AUTO 9.8 % (2.0-11.0); NEUTROPHILS ABSOLUTE AUTO 5.3 x10^3/uL (1.8-7.7); NEUTROPHILS PERCENT AUTO 53.7 % (50.0-80.0); PLATELET COUNT,PLT 247 x10^3/uL (130-400); RED BLOOD CELL COUNT 4.52 x10^6/uL (4.00-5.50); WHITE BLOOD CELL COUNT,WBC 9.9 x10^3/uL (4.0-10.0)
[2022-11-13] MEDS: Diltiazem 50 MG/10 ML SDV IVPUSH ONE (22:34)
[2022-11-13 22:51] VITALS: PULSE 157
[2022-11-13 22:59] LABS: A/G RATIO 1.05; ANION GAP 20.6 mmol/L (5-15); BILIRUBIN TOTAL 0.5 mg/dL (0.2-1.0); CALCIUM 9.4 mg/dL (8.5-10.1); CREATININE 0.9 mg/dL (0.55-1.02); EST CRCL DRUG DOSING (CG) 58.32 mL/min; MAGNESIUM 2.1 mg/dL (1.8-2.4); POTASSIUM,K 3.6 mmol/L (3.5-5.1); PROTEIN TOTAL,TP 7.8 g/dL (6.4-8.2); TSH ULTRASENSITIVE 3.916 uIU/mL (0.358-3.74)
[2022-11-13 23:29] VITALS: BP 153/83
== END 2022-11-13 23:17 | disposition home or self-care (01) ==
LOC: VM.ED 22:11
DX: I47.1 Supraventricular tachycardia (principal); I10 Essential (primary) hypertension; Z88.8 Allergy status to other drugs, medicaments and biological substances; Z88.0 Allergy status to penicillin; Z88.2 Allergy status to sulfonamides
CPT/HCPCS: 80053; 83735; 84443; 84484; 85025; 93005; 93010; 96374; 99284; 99285-25; J3490

== ENCOUNTER 2023-11-25 06:30 | Emergency (ER) | payer OTHER ==
[2023-11-25] MEDS: Diltiazem 50 MG/10 ML SDV IVPUSH ONE (07:09)
[2023-11-25 07:42] VITALS: BP 147/84; PULSE 74
== END 2023-11-25 07:42 | disposition home or self-care (01) ==
LOC: VM.ED 06:30
DX: I47.10 Supraventricular tachycardia, unspecified (principal); I10 Essential (primary) hypertension; Z79.899 Other long term (current) drug therapy; Z88.0 Allergy status to penicillin; Z88.2 Allergy status to sulfonamides; Z88.6 Allergy status to analgesic agent; Z88.1 Allergy status to other antibiotic agents
CPT/HCPCS: 93005; 96374; 99284; J3490

== ENCOUNTER 2023-12-19 21:17 | Emergency (ER) | payer OTHER ==
[2023-12-19 21:38] VITALS: PULSE 154
[2023-12-19] MEDS: Diltiazem 50 MG/10 ML SDV IVPUSH ONE ×2 (21:40→22:40)
[2023-12-20 00:09] VITALS: BP 140/85
== END 2023-12-19 23:59 | disposition home or self-care (01) ==
LOC: VM.ED 21:17 → SUPCPDRO 21:17 → VM.ED 22:17
DX: I47.10 Supraventricular tachycardia, unspecified (principal); I10 Essential (primary) hypertension; Z88.0 Allergy status to penicillin; Z88.2 Allergy status to sulfonamides; Z88.1 Allergy status to other antibiotic agents; Z88.6 Allergy status to analgesic agent
CPT/HCPCS: 93005; 93010; 96374; 96376; 99284; 99284-25; J3490

== ENCOUNTER 2024-03-19 14:57 | Emergency (ER) | payer OTHER ==
[2024-03-19] MEDS ORDERED: Sodium Chloride 0.9% 10 ML Syringe FLUSH PRN (15:17)
[2024-03-19 15:28] LABS: BASOPHILS PERCENT AUTO 0.2 % (0.2-1.2); EOSINOPHILS ABSOLUTE AUTO 0.1 x10^3/uL (0.0-0.5); EOSINOPHILS PERCENT AUTO 0.9 % (0.0-4.0); HEMATOCRIT 41.8 % (33.0-47.0); HEMOGLOBIN 14.4 g/dL (12.0-16.0); IMMATURE GRAN ABSOLUTE AUTO 0.01 x10^3/uL (0.00-0.07); LYMPHOCYTES ABSOLUTE AUTO 2.1 x10^3/uL (1.0-4.8); LYMPHOCYTES PERCENT AUTO 23.2 % (25.0-50.0); MEAN CORPUSCULAR HEMOGLOBIN 32.5 pg (26.0-32.0); MEAN CORPUSCULAR HGB CONC 34.4 g/dL (32.0-36.0); MEAN CORPUSCULAR VOLUME 94.4 fL (78.0-93.0); MONOCYTES ABSOLUTE AUTO 0.5 x10^3/uL (0.0-0.8); MONOCYTES PERCENT AUTO 5.8 % (2.0-11.0); NEUTROPHILS ABSOLUTE AUTO 6.3 x10^3/uL (1.8-7.7); NEUTROPHILS PERCENT AUTO 69.8 % (50.0-80.0); PLATELET COUNT,PLT 245 x10^3/uL (130-400); RED BLOOD CELL COUNT 4.43 x10^6/uL (4.00-5.50); WHITE BLOOD CELL COUNT,WBC 9.1 x10^3/uL (4.0-10.0)
[2024-03-19] MEDS: Diltiazem 50 MG/10 ML SDV IVPUSH ONE (15:28)
[2024-03-19 15:34] VITALS: BP 153/84; PULSE 75
[2024-03-19 15:40] LABS: PTT,PARTIAL THROMBOPLSTIN TIME 27.2 SEC (21.9-33.8)
[2024-03-19 15:50] LABS: A/G RATIO 1.03; ALANINE AMINOTRANSFERASE,ALT 22 U/L (14-59); ALBUMIN 3.8 g/dL (3.4-5.0); ALKALINE PHOSPHATASE 99 U/L (46-116); ASPARTATE AMNIOTRANSFERASE,AST 21 U/L (15-37); BILIRUBIN TOTAL 0.5 mg/dL (0.2-1.0); BLOOD UREA NITROGEN,BUN 14 mg/dL (7-18); CALCIUM 9.5 mg/dL (8.5-10.1); CARBON DIOXIDE,CO2 23 mmol/L (21-32); CHLORIDE,CL 103 mmol/L (98-107); CREATININE 0.9 mg/dL (0.55-1.02); EST CRCL DRUG DOSING (CG) 66.86 mL/min; GLUCOSE RANDOM 120 mg/dL (70-99); MAGNESIUM 1.9 mg/dL (1.8-2.4); POTASSIUM,K 3.9 mmol/L (3.5-5.1); PROTEIN TOTAL,TP 7.5 g/dL (6.4-8.2); SODIUM,NA 139 mmol/L (136-145); TSH ULTRASENSITIVE 2.226 uIU/mL (0.358-3.74)
[2024-03-19 15:53] LABS: ANION GAP 16.9 mmol/L (5-15); C-REACTIVE PROTEIN < 0.50 mg/dL (<=0.50); ESTIMATED GFR 72 mL/min (>=60)
== END 2024-03-19 16:04 | disposition home or self-care (01) ==
LOC: VM.ED 14:57
DX: I47.10 Supraventricular tachycardia, unspecified (principal); I10 Essential (primary) hypertension; Z79.899 Other long term (current) drug therapy; Z88.0 Allergy status to penicillin; Z88.5 Allergy status to narcotic agent; Z88.2 Allergy status to sulfonamides
CPT/HCPCS: 80053; 83735; 84443; 84484; 85025; 85610; 85730; 86140; 93005; 93010; 96374; 99284; 99285-25; J3490

== ENCOUNTER 2024-05-08 19:05 | Emergency (ER) | payer OTHER ==
[2024-05-08 19:35] LABS: BASOPHILS PERCENT AUTO 0.3 % (0.2-1.2); EOSINOPHILS ABSOLUTE AUTO 0.2 x10^3/uL (0.0-0.5); EOSINOPHILS PERCENT AUTO 1.5 % (0.0-4.0); HEMATOCRIT 42.5 % (33.0-47.0); HEMOGLOBIN 14.6 g/dL (12.0-16.0); IMMATURE GRAN ABSOLUTE AUTO 0.01 x10^3/uL (0.00-0.07); LYMPHOCYTES ABSOLUTE AUTO 2.6 x10^3/uL (1.0-4.8); LYMPHOCYTES PERCENT AUTO 26.7 % (25.0-50.0); MEAN CORPUSCULAR HGB CONC 34.4 g/dL (32.0-36.0); MEAN CORPUSCULAR VOLUME 93.2 fL (78.0-93.0); MONOCYTES ABSOLUTE AUTO 0.6 x10^3/uL (0.0-0.8); MONOCYTES PERCENT AUTO 6.5 % (2.0-11.0); NEUTROPHILS ABSOLUTE AUTO 6.4 x10^3/uL (1.8-7.7); NEUTROPHILS PERCENT AUTO 64.9 % (50.0-80.0); PLATELET COUNT,PLT 267 x10^3/uL (130-400); RED BLOOD CELL COUNT 4.56 x10^6/uL (4.00-5.50); WHITE BLOOD CELL COUNT,WBC 9.8 x10^3/uL (4.0-10.0)
[2024-05-08] MEDS: Diltiazem 50 MG/10 ML SDV IVPUSH ONE (19:51)
[2024-05-08 19:59] LABS: A/G RATIO 0.97; ALANINE AMINOTRANSFERASE,ALT 25 U/L (14-59); ALBUMIN 3.7 g/dL (3.4-5.0); ALKALINE PHOSPHATASE 102 U/L (46-116); ASPARTATE AMNIOTRANSFERASE,AST 20 U/L (15-37); BILIRUBIN TOTAL 0.3 mg/dL (0.2-1.0); BLOOD UREA NITROGEN,BUN 15 mg/dL (7-18); CALCIUM 9.9 mg/dL (8.5-10.1); CARBON DIOXIDE,CO2 20 mmol/L (21-32); CHLORIDE,CL 104 mmol/L (98-107); CREATININE 0.9 mg/dL (0.55-1.02); GLUCOSE RANDOM 137 mg/dL (70-99); POTASSIUM,K 3.7 mmol/L (3.5-5.1); PROTEIN TOTAL,TP 7.5 g/dL (6.4-8.2); SODIUM,NA 139 mmol/L (136-145)
[2024-05-08 20:00] LABS: ANION GAP 18.7 mmol/L (5-15); ESTIMATED GFR 72 mL/min (>=60)
[2024-05-09 00:17] VITALS: BP 139/79; PULSE 71
== END 2024-05-08 21:00 | disposition home or self-care (01) ==
LOC: VM.ED 19:05
DX: I48.92 Unspecified atrial flutter (principal); R94.31 Abnormal electrocardiogram [ECG] [EKG]; Z88.0 Allergy status to penicillin; Z88.2 Allergy status to sulfonamides; Z88.8 Allergy status to other drugs, medicaments and biological substances; Z79.899 Other long term (current) drug therapy
CPT/HCPCS: 71045; 80053; 84484; 85025; 93005; 93010; 96374; 99284; 99285; J3490; 36415

== ENCOUNTER 2024-08-08 21:01 | Emergency (ER) | payer OTHER ==
[2024-08-08] MEDS ORDERED: Sodium Chloride 0.9% 10 ML Syringe FLUSH PRN (21:11)
[2024-08-08] MEDS: Diltiazem 50 MG/10 ML SDV IVPUSH ONE (21:25)
[2024-08-08 21:43] LABS: BASOPHILS PERCENT AUTO 0.1 % (0.2-1.2); EOSINOPHILS ABSOLUTE AUTO 0.1 x10^3/uL (0.0-0.5); HEMATOCRIT 41.6 % (33.0-47.0); HEMOGLOBIN 14.3 g/dL (12.0-16.0); IMMATURE GRAN ABSOLUTE AUTO 0.01 x10^3/uL (0.00-0.07); LYMPHOCYTES ABSOLUTE AUTO 2.5 x10^3/uL (1.0-4.8); LYMPHOCYTES PERCENT AUTO 28.2 % (25.0-50.0); MEAN CORPUSCULAR HEMOGLOBIN 31.8 pg (26.0-32.0); MEAN CORPUSCULAR HGB CONC 34.4 g/dL (32.0-36.0); MEAN CORPUSCULAR VOLUME 92.7 fL (78.0-93.0); MONOCYTES ABSOLUTE AUTO 0.6 x10^3/uL (0.0-0.8); MONOCYTES PERCENT AUTO 6.8 % (2.0-11.0); NEUTROPHILS ABSOLUTE AUTO 5.7 x10^3/uL (1.8-7.7); NEUTROPHILS PERCENT AUTO 63.8 % (50.0-80.0); PLATELET COUNT,PLT 237 x10^3/uL (130-400); RED BLOOD CELL COUNT 4.49 x10^6/uL (4.00-5.50)
[2024-08-08 22:03] LABS: A/G RATIO 1.03; ALANINE AMINOTRANSFERASE,ALT 27 U/L (14-59); ALBUMIN 3.7 g/dL (3.4-5.0); ALKALINE PHOSPHATASE 102 U/L (46-116); ASPARTATE AMNIOTRANSFERASE,AST 19 U/L (15-37); BILIRUBIN TOTAL 0.5 mg/dL (0.2-1.0); BLOOD UREA NITROGEN,BUN 5 mg/dL (7-18); CALCIUM 9.5 mg/dL (8.5-10.1); CARBON DIOXIDE,CO2 23 mmol/L (21-32); CHLORIDE,CL 102 mmol/L (98-107); CREATININE 0.9 mg/dL (0.55-1.02); GLUCOSE RANDOM 115 mg/dL (70-99); POTASSIUM,K 3.8 mmol/L (3.5-5.1); PROTEIN TOTAL,TP 7.3 g/dL (6.4-8.2); SODIUM,NA 136 mmol/L (136-145)
[2024-08-08 22:04] LABS: ANION GAP 14.8 mmol/L (5-15); ESTIMATED GFR 71 mL/min (>=60)
[2024-08-08 23:02] VITALS: PULSE 153
[2024-08-08 23:33] VITALS: BP 169/85
== END 2024-08-08 22:20 | disposition home or self-care (01) ==
LOC: VM.ED 21:01
DX: I48.92 Unspecified atrial flutter (principal); I10 Essential (primary) hypertension; Z88.0 Allergy status to penicillin; Z88.2 Allergy status to sulfonamides; Z88.6 Allergy status to analgesic agent; Z88.8 Allergy status to other drugs, medicaments and biological substances; Z79.899 Other long term (current) drug therapy
CPT/HCPCS: 80053; 85025; 93005; 96374; 99285; J3490

== ENCOUNTER 2024-08-23 03:35 | Emergency (ER) | payer OTHER ==
[2024-08-23] MEDS: Diltiazem 50 MG/10 ML SDV IVPUSH ONE (04:09)
[2024-08-23 04:24] LABS: BASOPHILS PERCENT AUTO 0.3 % (0.2-1.2); EOSINOPHILS ABSOLUTE AUTO 0.2 x10^3/uL (0.0-0.5); EOSINOPHILS PERCENT AUTO 1.9 % (0.0-4.0); HEMATOCRIT 40.9 % (33.0-47.0); HEMOGLOBIN 14.2 g/dL (12.0-16.0); IMMATURE GRAN ABSOLUTE AUTO 0.01 x10^3/uL (0.00-0.07); LYMPHOCYTES ABSOLUTE AUTO 2.6 x10^3/uL (1.0-4.8); LYMPHOCYTES PERCENT AUTO 33.2 % (25.0-50.0); MEAN CORPUSCULAR HEMOGLOBIN 32.3 pg (26.0-32.0); MEAN CORPUSCULAR HGB CONC 34.7 g/dL (32.0-36.0); MEAN CORPUSCULAR VOLUME 93.2 fL (78.0-93.0); MONOCYTES ABSOLUTE AUTO 0.6 x10^3/uL (0.0-0.8); MONOCYTES PERCENT AUTO 7.8 % (2.0-11.0); NEUTROPHILS ABSOLUTE AUTO 4.4 x10^3/uL (1.8-7.7); NEUTROPHILS PERCENT AUTO 56.7 % (50.0-80.0); PLATELET COUNT,PLT 225 x10^3/uL (130-400); RED BLOOD CELL COUNT 4.39 x10^6/uL (4.00-5.50); WHITE BLOOD CELL COUNT,WBC 7.7 x10^3/uL (4.0-10.0)
[2024-08-23 04:38] LABS: A/G RATIO 1.03; ALBUMIN 3.6 g/dL (3.4-5.0); BILIRUBIN TOTAL 0.3 mg/dL (0.2-1.0); CALCIUM 9.1 mg/dL (8.5-10.1); CREATININE 0.9 mg/dL (0.55-1.02); EST CRCL DRUG DOSING (CG) 52.24 mL/min; MAGNESIUM 1.9 mg/dL (1.8-2.4); PROTEIN TOTAL,TP 7.1 g/dL (6.4-8.2)
[2024-08-23 04:49] VITALS: PULSE 152
[2024-08-23 05:04] VITALS: BP 138/78
== END 2024-08-23 05:10 | disposition home or self-care (01) ==
LOC: VM.ED 03:35
DX: I47.10 Supraventricular tachycardia, unspecified (principal); I10 Essential (primary) hypertension; Z88.0 Allergy status to penicillin; Z88.2 Allergy status to sulfonamides; Z88.6 Allergy status to analgesic agent; Z88.8 Allergy status to other drugs, medicaments and biological substances; Z79.899 Other long term (current) drug therapy
CPT/HCPCS: 80053; 83735; 85025; 93005; 96374; 99285-25; J3490

== ENCOUNTER 2024-09-20 00:03 | Emergency (ER) | payer OTHER ==
[2024-09-20] MEDS: Diltiazem 50 MG/10 ML SDV IVPUSH ONE ×2 (00:18→01:16)
[2024-09-20 01:47] VITALS: PULSE 143
[2024-09-20 01:55] VITALS: BP 137/74
== END 2024-09-20 02:13 | disposition home or self-care (01) ==
LOC: VM.ED 00:03
DX: R00.0 Tachycardia, unspecified (principal); I10 Essential (primary) hypertension; Z88.0 Allergy status to penicillin; Z88.2 Allergy status to sulfonamides; Z88.8 Allergy status to other drugs, medicaments and biological substances; Z79.899 Other long term (current) drug therapy
CPT/HCPCS: 93005; 93010; 96374; 99284; 99284-25; J3490